=== PATIENT | female | born 1945 | race Caucasian/White ===

== ENCOUNTER 2023-06-14 12:33 | Emergency (ER) | payer MEDICARE, OTHER ==
--- NOTE | 2023-06-14 13:46 | ED ---
GI Bleed HPI - General Chief complaint: GI Bleed Stated complaint: GI bleed Time Seen by Provider: 06/14/23 12:50 Source: patient Mode of arrival: wheelchair Limitations: no limitations - History of Present Illness Initial comments: 77 year old female past history of A. fib on Xarelto, hypertension and presents emergency room with dark tarry stools. States for the past 3 days she has had stools are very dark in color. She states that they are normal consistency for her and she goes once a day. She denies any abdominal pain or rectal pain. No fevers. She spoke with her daughter who is a PA for a GI office. They did order laboratory studies which demonstrated that her hemoglobin was low and instructed that she needed to come into the hospital for transfusion. She has had previous colonoscopy however states this was in the remote past and was was negative for any acute findings. She denies hematemesis. Does admit to some generalized fatigue. No alleviating, precipitating or modifying factors - Related Data Home Medications Medication Instructions Recorded Confirmed Amiodarone [Cordarone] 200 mg PO MOWEFR 06/14/23 06/14/23 Levothyroxine Sodium [Synthroid] 125 mcg PO DAILY 06/14/23 06/14/23 Metoprolol Succinate (ER) [Toprol 25 mg PO DAILY@1400 06/14/23 06/14/23 Xl] Pantoprazole [Protonix] 40 mg PO DAILY 06/14/23 06/14/23 lisinopriL [Zestril] 20 mg PO DAILY 06/14/23 06/14/23 Allergies Allergy/AdvReac Type Severity Reaction Status Date / Time No Known Allergies Allergy Verified 06/14/23 14:02 Review of Systems ROS Statement: Those systems with pertinent positive or pertinent negative responses have been documented in the HPI. ROS Other: All systems not noted in ROS Statement are negative. Past Medical History Past Medical History: Atrial Fibrillation, Hypertension, Thyroid Disorder History of Any Multi-Drug Resistant Organisms: None Reported Additional Past Surgical History / Comment(s): thyroidectomy Past Psychological History: No Psychological Hx Reported Smoking Status: Former smoker Past Alcohol Use History: None Reported Past Drug Use History: None Reported General Exam Limitations: no limitations General appearance: alert, in no apparent distress Head exam: Present: atraumatic, normocephalic, normal inspection Eye exam: Present: normal appearance, PERRL, EOMI. Absent: scleral icterus, conjunctival injection, periorbital swelling ENT exam: Present: normal exam, mucous membranes moist Neck exam: Present: normal inspection. Absent: tenderness, meningismus, lymphadenopathy Respiratory exam: Present: normal lung sounds bilaterally. Absent: respiratory distress, wheezes, rales, rhonchi, stridor Cardiovascular Exam: Present: regular rate, normal rhythm, normal heart sounds. Absent: systolic murmur, diastolic murmur, rubs, gallop, clicks GI/Abdominal exam: Present: soft, normal bowel sounds. Absent: distended, ten derness, guarding, rebound, rigid Rectal exam: Present: heme (+) stool, black stool Extremities exam: Present: normal inspection, full ROM, normal capillary refill. Absent: tenderness, pedal edema, joint swelling, calf tenderness Back exam: Present: normal inspection Neurological exam: Present: alert, oriented X3, CN II-XII intact Psychiatric exam: Present: normal affect, normal mood Skin exam: Present: warm, dry, intact, normal color. Absent: rash Course Vital Signs 06/14/23 06/14/23 06/14/23 12:47 13:30 16:00 Temperature 97.9 F Pulse Rate 79 100 75 Respiratory 18 18 18 Rate Blood Pressure 116/55 132/61 117/73 O2 Sat by Pulse 99 96 Oximetry Medical Decision Making - Medical Decision Making Was pt. sent in by a medical professional or institution (, PA, DOUBLE NEEDLE STITCHER, urgent care, hospital, or half-way...) When possible be specific @ -No Did you speak to anyone other than the patient for history (EMS, parent, family, police, friend...)? What history was obtained from this source @ -I spoke with the patient's daughter, Roman Velasquez who is a PA for Dr. Fish, the GI doctor Did you review nursing and triage notes (agree or disagree)? Why? @ -I reviewed and agree with nursing and triage notes Were old charts reviewed (outside hosp., previous admission, EMS record, old EKG, old radiological studies, urgent care reports/EKG's, half-way records)? Report findings @ -No old charts are available for review Differential Diagnosis (chest pain, altered mental status, abdominal pain women, abdominal pain men, vaginal bleeding, weakness, fever, dyspnea, syncope, headache, dizziness, GI bleed, back pain, seizure, CVA, palpatations, mental health, musculoskeletal)? @ -Differential GI Bleed: Esophageal varices, aortoenteric fistula, Madeline-Treadwell, gastritis, peptic ulcer disease, diverticulosis, inflammatory bowel disease, hemorrhoids, fissure, colitis, malignancy, Meckels diverticulum, this is not meant to be an all- inclusive list. EKG interpreted by me (3pts min.). @ -Not done X-rays interpreted by me (1pt min.). @ -None done CT interpreted by me (1pt min.). @ -None done U/S interpreted by me (1pt. min.). @ -None done What testing was considered but not performed or refused? (CT, X-rays, U/S, labs)? Why? @ -CT was considered however the patient does not have any abdominal pain What meds were considered but not given or refused? Why? @ -None Did you discuss the management of the patient with other professionals (professionals i.e. , PA, DOUBLE NEEDLE STITCHER, lab, RT, psych nurse, school social worker, painter aircraft, teacher, unemployment insurance hearing officer, heel caser)? Give summary @ -I spoke with Dr. Mosley. Not willing to consult on patient unless GI available. Woke with GI who was originally okay to consult on the patient however did retract their statements later on Was smoking cessation discussed for >3mins.? @ -No Was critical care preformed (if so, how long)? @ -yes, 35 minutes for transfusion of blood products Were there social determinants of health that impacted care today? How? (Homelessness, low income, unemployed, alcoholism, drug addiction, transportation, low edu. Level, literacy, decrease access to med. care, [place] [facility], rehab)? @ -No Was there de-escalation of care discussed even if they declined (Discuss DNR or withdrawal of care, Hospice)? DNR status @ -No What co-morbidities impacted this encounter? (DM, HTN, Smoking, COPD, CAD, Cancer, CVA, ARF, Chemo, Hep., AIDS, mental health diagnosis, sleep apnea, morbid obesity)? @ -afib on xarelto Was patient admitted / discharged? Hospital course, mention meds given and route, prescriptions, significant lab abnormalities, going to OR and other pertinent info. @ -Upon arrival patient was placed into room 5. A thorough history and physical exam was performed. She is placed on continuous pulse ox and cardiac monitoring. Patient is hemodynamically stable. Rectal exam is performed and does demonstrate dark stools. Occult is positive. Laboratory studies are conducted and demonstrated hemoglobin of 6.7. Patient's Xarelto is held. I spoke with our surgeon on-call who was agreeable to keep the patient here as long as GI would consult on patient. Originally spoke to GI who states that they would be able to help manage the patient however their statements are r etracted as they are going to be out of town. As GI is not available the patient will require transfer. I did call and speak with Dr. Alcantara from oncology. DIC labs ordered including fibrinogen and coags. I also divya acute hepatitis panel, vitamin B12, folate and iron labs. Patient is then transfused 1 unit of packed red blood cells. I did order a pack of platelets however I receive a call from blood bank stating that the platelets on hand will not be compatible. As the patient is being transferred to an outside facility I will hold off on transfusing platelets and notify receiving facility that she will require platelets. Patient is going to be transferred to [facility] - Spoke with Dr. Dee who agreed to accept the patient. COBRA forms are signed and the patient will be transferred in stable condition Undiagnosed new problem with uncertain prognosis? @ -yes Drug Therapy requiring intensive monitoring for toxicity (Heparin, Nitro, Insulin, Cardizem)? @ -yes- blood Were any procedures done? @ -No Diagnosis/symptom? @ -Acute melanotic, acute lower GI bleed, acute blood loss anemia, acute thrombocytopenia, history of A. fib on xarelto Acute, or Chronic, or Acute on Chronic? @ -acute Uncomplicated (without systemic symptoms) or Complicated (systemic symptoms)? @ -complicated Side effects of treatment? @ -blood incompatibility Exacerbation, Progression, or Severe Exacerbation? @ -No Poses a threat to life or bodily function? How? (Chest pain, USA, NH, pneumonia, PE, COPD, DKA, ARF, appy, cholecystitis, CVA, Diverticulitis, Homicidal, Suicidal, threat to staff... and all critical care pts) @ -yes patient has acute GI bleed with blood loss anemia - Lab Data Result diagrams: 06/14/23 13:40 06/14/23 13:40 Lab Results 06/14/23 06/14/23 06/14/23 Range/Units 13:33 13:38 13:40 WBC 5.6 (3.8-10.6) k/uL RBC 1.96 L (3.80-5.40) m/uL Hgb 6.7 L* (11.4-16.0) gm/dL Hct 19.2 L* (34.0-46.0) % MCV 97.8 (80.0-100.0) fL MCH 33.9 (25.0-35.0) pg MCHC 34.6 (31.0-37.0) g/dL RDW 18.5 H (11.5-15.5) % Plt Count 20 L (150-450) k/uL MPV 9.2 Neutrophils % 72 % Lymphocytes % 20 % Monocytes % 5 % Eosinophils % 1 % Basophils % 0 % Neutrophils # 4.0 (1.3-7.7) k/uL Lymphocytes # 1.1 (1.0-4.8) k/uL Monocytes # 0.3 (0-1.0) k/uL Eosinophils # 0.0 (0-0.7) k/uL Basophils # 0.0 (0-0.2) k/uL Manual Slide Review Performed Hypochromasia Slight Poikilocytosis Slight Anisocytosis Slight Macrocytosis Slight PT (9.0-12.0) sec INR (<1.2) APTT (22.0-30.0) sec Sodium (137-145) mmol/L Potassium (3.5-5.1) mmol/L Chloride (98-107) mmol/L Carbon Dioxide (22-30) mmol/L Anion Gap mmol/L BUN (7-17) mg/dL Creatinine (0.52-1.04) mg/dL Est GFR (CKD-EPI)AfAm (>60 ml/min/1.73 sqM) Est GFR (CKD-EPI)NonAf (>60 ml/min/1.73 sqM) Glucose (74-99) mg/dL Plasma Lactic Acid Karsten (0.7-2.0) mmol/L Calcium (8.4-10.2) mg/dL Magnesium (1.6-2.3) mg/dL Total Bilirubin (0.2-1.3) mg/dL AST (14-36) U/L ALT (4-34) U/L Alkaline Phosphatase (38-126) U/L Troponin I (0.000-0.034) ng/mL Total Protein (6.3-8.2) g/dL Albumin (3.5-5.0) g/dL Stool Occult Blood (Negative) Blood Type O Positive Blood Type Confirm O Positive Blood Type Recheck No Previous Record Bld Type Recheck Status CABO Indicated Antibody Screen NEGATIVE Crossmatch See Detail Spec Expiration Date 06/17/2023 - 233706/14/23 06/14/23 06/14/23 Range/Units 13:40 13:40 13:40 WBC (3.8-10.6) k/uL RBC (3.80-5.40) m/uL Hgb (11.4-16.0) gm/dL Hct (34.0-46.0) % MCV (80.0-100.0) fL MCH (25.0-35.0) pg MCHC (31.0-37.0) g/dL RDW (11.5-15.5) % Plt Count (150-450) k/uL MPV Neutrophils % % Lymphocytes % % Monocytes % % Eosinophils % % Basophils % % Neutrophils # (1.3-7.7) k/uL Lymphocytes # (1.0-4.8) k/uL Monocytes # (0-1.0) k/uL Eosinophils # (0-0.7) k/uL Basophils # (0-0.2) k/uL Manual Slide Review Hypochromasia Poikilocytosis Anisocytosis Macrocytosis PT 12.4 H (9.0-12.0) sec INR 1.2 H (<1.2) APTT 25.4 (22.0-30.0) sec Sodium 140 (137-145) mmol/L Potassium 4.9 (3.5-5.1) mmol/L Chloride 108 H (98-107) mmol/L Carbon Dioxide 23 (22-30) mmol/L Anion Gap 9 mmol/L BUN 54 H (7-17) mg/dL Creatinine 1.33 H (0.52-1.04) mg/dL Est GFR (CKD-EPI)AfAm 44 (>60 ml/min/1.73 sqM) Est GFR (CKD-EPI)NonAf 38 (>60 ml/min/1.73 sqM) Glucose 120 H (74-99) mg/dL Plasma Lactic Acid Karsten (0.7-2.0) mmol/L Calcium 8.6 (8.4-10.2) mg/dL Magnesium 2.1 (1.6-2.3) mg/dL Total Bilirubin 0.5 (0.2-1.3) mg/dL AST 26 (14-36) U/L ALT 26 (4-34) U/L Alkaline Phosphatase 59 (38-126) U/L Troponin I (0.000-0.034) ng/mL Total Protein 6.4 (6.3-8.2) g/dL Albumin 3.9 (3.5-5.0) g/dL Stool Occult Blood Positive H (Negative) Blood Type Blood Type Confirm Blood Type Recheck Bld Type Recheck Status Antibody Screen Crossmatch Spec Expiration Date 06/14/23 06/14/23 Range/Units 13:40 13:40 WBC (3.8-10.6) k/uL RBC (3.80-5.40) m/uL Hgb (11.4-16.0) gm/dL Hct (34.0-46.0) % MCV (80.0-100.0) fL MCH (25.0-35.0) pg MCHC (31.0-37.0) g/dL RDW (11.5-15.5) % Plt Count (150-450) k/uL MPV Neutrophils % % Lymphocytes % % Monocytes % % Eosinophils % % Basophils % % Neutrophils # (1.3-7.7) k/uL Lymphocytes # (1.0-4.8) k/uL Monocytes # (0-1.0) k/uL Eosinophils # (0-0.7) k/uL Basophils # (0-0.2) k/uL Manual Slide Review Hypochromasia Poikilocytosis Anisocytosis Macrocytosis PT (9.0-12.0) sec INR (<1.2) APTT (22.0-30.0) sec Sodium (137-145) mmol/L Potassium (3.5-5.1) mmol/L Chloride (98-107) mmol/L Carbon Dioxide (22-30) mmol/L Anion Gap mmol/L BUN (7-17) mg/dL Creatinine (0.52-1.04) mg/dL Est GFR (CKD-EPI)AfAm (>60 ml/min/1.73 sqM) Est GFR (CKD-EPI)NonAf (>60 ml/min/1.73 sqM) Glucose (74-99) mg/dL Plasma Lactic Acid Karsten 1.1 (0.7-2.0) mmol/L Calcium (8.4-10.2) mg/dL Magnesium (1.6-2.3) mg/dL Total Bilirubin (0.2-1.3) mg/dL AST (14-36) U/L ALT (4-34) U/L Alkaline Phosphatase (38-126) U/L Troponin I <0.012 (0.000-0.034) ng/mL Total Protein (6.3-8.2) g/dL Albumin (3.5-5.0) g/dL Stool Occult Blood (Negative) Blood Type Blood Type Confirm Blood Type Recheck Bld Type Recheck Status Antibody Screen Crossmatch Spec Expiration Date Disposition Clinical Impression: GI bleed, Melena, Thrombocytopenia Disposition: OTHER INSTITUTION NOT DEFINED Condition: Serious Is patient prescribed a controlled substance at d/c from ED?: No Referrals: None,Stated [REFERRING] - 1-2 days Time of Disposition: 16:50 - Out of Hospital Transfer - Req. Specs Out of Hospital Transfer - Requested Specifics: Other Emergency Center ([facility])
[2023-06-14 14:01] LABS: Anisocytosis Slight; Basophils % (A) 0 %; Eosinophils % (A) 1 %; Hypochromasia Slight; Lymphocytes # (A) 1.1 k/uL (1.0-4.8); Lymphocytes % (A) 20 %; MCH 33.9 pg (25.0-35.0); MCHC 34.6 g/dL (31.0-37.0); MCV 97.8 fL (80.0-100.0); Macrocytosis Slight; Mean Platelet Volume 9.2; Monocytes # (A) 0.3 k/uL (0-1.0); Monocytes % (A) 5 %; Neutrophils % (A) 72 %; Poikilocytosis Slight; RBC 1.96 m/uL (3.80-5.40); RDW 18.5 % (11.5-15.5); WBC 5.6 k/uL (3.8-10.6)
[2023-06-14 14:03] LABS: INR 1.2 (<1.2); Partial Thromboplastin Time 25.4 sec (22.0-30.0); Prothrombin Time 12.4 sec (9.0-12.0)
[2023-06-14 14:09] LABS: HCT 19.2 % (34.0-46.0); HGB 6.7 gm/dL (11.4-16.0)
[2023-06-14 14:28] LABS: Platelet Count 20 k/uL (150-450)
[2023-06-14 15:16] LABS: ALT 26 U/L (4-34); AST 26 U/L (14-36); African American GFR (CKD) 44 (>60 ml/min/1.73 sqM); Albumin 3.9 g/dL (3.5-5.0); Alkaline Phosphatase 59 U/L (38-126); Anion Gap 9 mmol/L; Blood Urea Nitrogen 54 mg/dL (7-17); Calcium 8.6 mg/dL (8.4-10.2); Carbon Dioxide 23 mmol/L (22-30); Chloride 108 mmol/L (98-107); Glucose 120 mg/dL (74-99); Magnesium 2.1 mg/dL (1.6-2.3); Non-African American GFR(CKD) 38 (>60 ml/min/1.73 sqM); Potassium 4.9 mmol/L (3.5-5.1); Sodium 140 mmol/L (137-145); Total Bilirubin 0.5 mg/dL (0.2-1.3); Total Protein 6.4 g/dL (6.3-8.2)
[2023-06-14] MEDS ORDERED: PANTOPRAZOLE 40 MG/10 ML VIAL IVP STA (17:20)
[2023-06-14 17:45] VITALS: RESP 16; TEMP 98.6
[2023-06-14 17:55] VITALS: BP 140/65; PULSE 90
[2023-06-15 02:49] LABS: Hepatitis A Antibody IgM Nonreactive; Hepatitis B Core IgM Nonreactive; Hepatitis B Surface Antigen Nonreactive; Hepatitis C IgG Antibody Nonreactive
[2023-06-15 05:11] LABS: % Iron Saturation 41.86 (12.00-45.00)
== END 2023-06-14 18:05 | disposition other institution (70) ==
LOC: EC 12:33
DX: K92.2 Gastrointestinal hemorrhage, unspecified (principal); D69.6 Thrombocytopenia, unspecified; I48.91 Unspecified atrial fibrillation; I10 Essential (primary) hypertension; E07.9 Disorder of thyroid, unspecified; Z87.891 Personal history of nicotine dependence; Z79.890 Hormone replacement therapy; Z79.899 Other long term (current) drug therapy; Z79.01 Long term (current) use of anticoagulants
CPT/HCPCS: 99285 ×2; 96374 ×2; 36415; 86900; 86901; 80053; 80074; 82607; 82728; 82746; 83540; 83550; 83605; 83735; 84484; 85025; 85384; 85610; 85730; 86850; 86920; 82272; 36430; P9016; C9113

== ENCOUNTER 2023-06-28 15:41 | Emergency (ER) | payer MEDICARE, OTHER ==
--- NOTE | 2023-06-28 16:15 | ED ---
General Adult HPI <Carla Fletcher - Last Filed: 06/28/23 16:13> - General Source: patient, RN notes reviewed, old records reviewed <Remberto Rosa - Last Filed: 06/28/23 19:37> - General Stated complaint: platlet transfusion per dr steve Time Seen by Provider: 06/28/23 17:23 - History of Present Illness Initial comments: Patient sent in for platelet transfusion. (Carla Fletcher) This is a 77-year-old female who is brought to the emergency department by family because Dr. Steve wanted her to get a platelet transfusion. Patient has ITP and Dr. Steve also had called ahead and spoke with me and he wanted the patient status of steroids and then she was to get a transfusion of platelets and sent home. Patient has no complaint currently patient states she is not bleeding anywhere currently and patient is okay with that clinical course ( Remberto Rosa) - Related Data Home Medications Medication Instructions Recorded Confirmed Amiodarone [Cordarone] 200 mg PO MOWEFR 06/14/23 06/14/23 Levothyroxine Sodium [Synthroid] 125 mcg PO DAILY 06/14/23 06/14/23 Metoprolol Succinate (ER) [Toprol 25 mg PO DAILY@1400 06/14/23 06/14/23 Xl] Pantoprazole [Protonix] 40 mg PO DAILY 06/14/23 06/14/23 lisinopriL [Zestril] 20 mg PO DAILY 06/14/23 06/14/23 Allergies Allergy/AdvReac Type Severity Reaction Status Date / Time No Known Allergies Allergy Verified 06/28/23 17:01 Review of Systems ROS Other: All systems not noted in ROS Statement are negative. <Carla Fletcher - Last Filed: 06/28/23 16:13> ROS Other: All systems not noted in ROS Statement are negative. <Remberto Rosa - Last Filed: 06/28/23 19:37> ROS Statement: Those systems with pertinent positive or pertinent negative responses have been documented in the HPI. Past Medical History Past Medical History: Atrial Fibrillation, Hypertension, Thyroid Disorder History of Any Multi-Drug Resistant Organisms: None Reported Additional Past Surgical History / Comment(s): thyroidectomy Past Psychological History: No Psychological Hx Reported Smoking Status: Former smoker Past Alcohol Use History: None Reported Past Drug Use History: None Reported <Carla Fletcher - Last Filed: 06/28/23 16:13> General Exam <Carla Fletcher - Last Filed: 06/28/23 16:13> <Remberto Rosa - Last Filed: 06/28/23 19:37> - General Exam Comments Initial Comments: Visual Physical Exam Vital signs reviewed General: Well-appearing, nontoxic, no acute distress. Head: Normocephalic, atraumatic Eyes: PERRLA, EOMI ENT: Airway patent Chest: Nonlabored breathing Skin: No visual rash, normal skin tone Neuro: Alert and oriented 3 Musculoskeletal: No gross abnormalities (Carla Fletcher) GENERAL: Patient is well-developed and well-nourished. Patient is nontoxic and well- hydrated and is in no acute distress. ENT: Neck is soft and supple. No significant lymphadenopathy is noted. Oropharynx is clear. Moist mucous membranes. Neck has full range of motion without eliciting any pain. EYES: The sclera were anicteric and conjunctiva were pink and moist. Extraocular movements were intact and pupils were equal round and reactive to light. Eyelids were unremarkable. PULMONARY: Unlabored respirations. Good breath sounds bilaterally. No audible rales rhonchi or wheezing was noted. CARDIOVASCULAR: There is a regular rate and rhythm without any murmurs gallops or rubs. ABDOMEN: Soft and nontender with normal bowel sounds. SKIN: Skin is clear with no lesions or rashes and otherwise unremarkable. NEUROLOGIC: Patient is alert and oriented x3. Cranial nerves II through XII are grossly intact. Motor and sensory are also intact. Normal speech, volume and content. Symmetrical smile. MUSCULOSKELETAL: Normal extremities with adequate strength and full range of motion. No lower extremity swelling or edema. No calf tenderness. LYMPHATICS: No significant lymphadenopathy is noted PSYCHIATRIC: Normal psychiatric evaluation. (Remberto Rosa) Course Vital Signs 06/28/23 06/28/23 06/28/23 16:56 17:50 18:35 Temperature 98.1 F Pulse Rate 61 68 62 Respiratory 18 18 18 Rate Blood Pressure 124/73 135/58 133/60 O2 Sat by Pulse 98 99 97 Oximetry 06/28/23 19:28 Temperature 98.5 F Pulse Rate 60 Respiratory 18 Rate Blood Pressure 148/61 O2 Sat by Pulse Oximetry Medical Decision Making <Carla Fletcher - Last Filed: 06/28/23 16:13> - Lab Data Result diagrams: 06/28/23 17:12 06/28/23 17:12 <RosaRemberto - Last Filed: 06/28/23 19:37> - Medical Decision Making A quick no portion of this exam was completed by myself, MARVEL Barahona. (Carla Fletcher) EKG was interpreted by myself EKG shows an atrial rhythm at 61 bpm NH interval 166 dresses 84 QT interval 422 QTC is 426 per patient's EKG shows no ST segment elevation or depression. Was pt. sent in by a medical professional or institution (, PA, SENIOR PROJECT MANAGER, urgent care, hospital, or fpc...) When possible be specific @ -Dr. Steve since patient into the emergency department Did you speak to anyone other than the patient for history (EMS, parent, family, police, friend...)? What history was obtained from this source @ -Dr. Steve gave quite a bit of a history prior to the patient's arrival Did you review nursing and triage notes (agree or disagree)? Why? @ -I reviewed and agree with nursing and triage notes Were old charts reviewed (outside hosp., previous admission, EMS record, old EKG, old radiological studies, urgent care reports/EKG's, fpc records)? Report findings @ -I reviewed prior charts prior labwork on this patient Differential Diagnosis (chest pain, altered mental status, abdominal pain women, abdominal pain men, vaginal bleeding, weakness, fever, dyspnea, syncope, headache, dizziness, GI bleed, back pain, seizure, CVA, palpatations, mental health, musculoskeletal)? @ -not applicable EKG interpreted by me (3pts min.). @ -As above X-rays interpreted by me (1pt min.). @ -None done CT interpreted by me (1pt min.). @ -None done U/S interpreted by me (1pt. min.). @ -None done What testing was considered but not performed or refused? (CT, X-rays, U/S, labs)? Why? @ -None What meds were considered but not given or refused? Why? @ -None Did you discuss the management of the patient with other professionals (professionals i.e. DrDougie, PA, SENIOR PROJECT MANAGER, lab, RT, psych nurse, health social work professor, manager wind, teacher, debt recovery officer, mattress spring encaser)? Give summary @ -No Was smoking cessation discussed for >3mins.? @ -No Was critical care preformed (if so, how long)? @ -No Were there social determinants of health that impacted care today? How? (Homelessness, low income, unemployed, alcoholism, drug addiction, perla sportation, low edu. Level, literacy, decrease access to med. care, usp, rehab)? @ -No Was there de-escalation of care discussed even if they declined (Discuss DNR or withdrawal of care, Hospice)? DNR status @ -No What co-morbidities impacted this encounter? (DM, HTN, Smoking, COPD, CAD, Cancer, CVA, ARF, Chemo, Hep., AIDS, mental health diagnosis, sleep apnea, morbid obesity)? @ -None Was patient admitted / discharged? Hospital course, mention meds given and route, prescriptions, significant lab abnormalities, going to OR and other pertinent info. @ -Received steroids per Dr. Steve's instructions. Patient also got 1 unit of platelets. Patient had no adverse reactions patient will be discharged home to follow-up with Dr. Steve Undiagnosed new problem with uncertain prognosis? @ -No Drug Therapy requiring intensive monitoring for toxicity (Heparin, Nitro, Insulin, Cardizem)? @ -No Were any procedures done? @ -No Diagnosis/symptom? @ -Thrombocytopenia Acute, or Chronic, or Acute on Chronic? @ -Acute Uncomplicated (without systemic symptoms) or Complicated (systemic symptoms)? @ -Complicated Side effects of treatment? @ -No Exacerbation, Progression, or Severe Exacerbation? @ -No Poses a threat to life or bodily function? How? (Chest pain, USA, [place], pneumonia, PE, COPD, DKA, ARF, appy, cholecystitis, CVA, Diverticulitis, Homicidal, Suicidal, threat to staff... and all critical care pts) @ -No (Remberto Rosa) - Lab Data Lab Results 06/28/23 06/28/23 06/28/23 Range/Units 17:12 17:12 17:12 WBC 3.4 L (3.8-10.6) k/uL RBC 2.88 L (3.80-5.40) m/uL Hgb 8.9 L D (11.4-16.0) gm/dL Hct 27.4 L (34.0-46.0) % MCV 94.9 (80.0-100.0) fL MCH 31.0 (25.0-35.0) pg MCHC 32.6 (31.0-37.0) g/dL RDW 17.5 H (11.5-15.5) % Plt Count 14 L* (150-450) k/uL MPV 10.4 Neutrophils % 61 % Lymphocytes % 32 % Monocytes % 6 % Eosinophils % 1 % Basophils % 0 % Neutrophils # 2.1 (1.3-7.7) k/uL Lymphocytes # 1.1 (1.0-4.8) k/uL Monocytes # 0.2 (0-1.0) k/uL Eosinophils # 0.0 (0-0.7) k/uL Basophils # 0.0 (0-0.2) k/uL Manual Slide Review Performed Large Platelets Present Polychromasia Present Anisocytosis Slight Macrocytosis Slight Sodium 137 (137-145) mmol/L Potassium 4.5 (3.5-5.1) mmol/L Chloride 104 (98-107) mmol/L Carbon Dioxide 27 (22-30) mmol/L Anion Gap 6 mmol/L BUN 19 H (7-17) mg/dL Creatinine 1.05 H (0.52-1.04) mg/dL Est GFR (CKD-EPI)AfAm 58 (>60 ml/min/1.73 sqM) Est GFR (CKD-EPI)NonAf 51 (>60 ml/min/1.73 sqM) Glucose 91 (74-99) mg/dL Calcium 8.8 (8.4-10.2) mg/dL Total Bilirubin 0.6 (0.2-1.3) mg/dL AST 48 H (14-36) U/L ALT 47 H (4-34) U/L Alkaline Phosphatase 68 (38-126) U/L Troponin I (0.000-0.034) ng/mL Total Protein 7.7 (6.3-8.2) g/dL Albumin 3.7 (3.5-5.0) g/dL Blood Type O Positive Blood Type Recheck O Pos Bld Type Recheck Status No Antibody Screen NEGATIVE 06/28/23 Range/Units 17:12 WBC (3.8-10.6) k/uL RBC (3.80-5.40) m/uL Hgb (11.4-16.0) gm/dL Hct (34.0-46.0) % MCV (80.0-100.0) fL MCH (25.0-35.0) pg MCHC (31.0-37.0) g/dL RDW (11.5-15.5) % Plt Count (150-450) k/uL MPV Neutrophils % % Lymphocytes % % Monocytes % % Eosinophils % % Basophils % % Neutrophils # (1.3-7.7) k/uL Lymphocytes # (1.0-4.8) k/uL Monocytes # (0-1.0) k/uL Eosinophils # (0-0.7) k/uL Basophils # (0-0.2) k/uL Manual Slide Review Large Platelets Polychromasia Anisocytosis Macrocytosis Sodium (137-145) mmol/L Potassium (3.5-5.1) mmol/L Chloride (98-107) mmol/L Carbon Dioxide (22-30) mmol/L Anion Gap mmol/L BUN (7-17) mg/dL Creatinine (0.52-1.04) mg/dL Est GFR (CKD-EPI)AfAm (>60 ml/min/1.73 sqM) Est GFR (CKD-EPI)NonAf (>60 ml/min/1.73 sqM) Glucose (74-99) mg/dL Calcium (8.4-10.2) mg/dL Total Bilirubin (0.2-1.3) mg/dL AST (14-36) U/L ALT (4-34) U/L Alkaline Phosphatase (38-126) U/L Troponin I <0.012 (0.000-0.034) ng/mL Total Protein (6.3-8.2) g/dL Albumin (3.5-5.0) g/dL Blood Type Blood Type Recheck Bld Type Recheck Status Antibody Screen Disposition <Carla Fletcher - Last Filed: 06/28/23 16:13> Is patient prescribed a controlled substance at d/c from ED?: No Time of Disposition: 19:37 <Remberto Rosa - Last Filed: 06/28/23 19:37> Clinical Impression: Acute ITP, Transfusion of platelets during current hospitalization Disposition: HOME SELF-CARE Condition: Good Referrals: Doroteo Steve [Primary Care Provider] - 1-2 days
[2023-06-28 17:28] LABS: Anisocytosis Slight; Basophils % (A) 0 %; Eosinophils % (A) 1 %; HCT 27.4 % (34.0-46.0); Lymphocytes # (A) 1.1 k/uL (1.0-4.8); Lymphocytes % (A) 32 %; MCHC 32.6 g/dL (31.0-37.0); MCV 94.9 fL (80.0-100.0); Macrocytosis Slight; Mean Platelet Volume 10.4; Monocytes # (A) 0.2 k/uL (0-1.0); Monocytes % (A) 6 %; Neutrophils # (A) 2.1 k/uL (1.3-7.7); Neutrophils % (A) 61 %; RBC 2.88 m/uL (3.80-5.40); RDW 17.5 % (11.5-15.5); WBC 3.4 k/uL (3.8-10.6)
[2023-06-28] MEDS ORDERED: methylPREDNISolone SOD SUCCI 125 MG/2 ML VIAL IV STA (17:34)
[2023-06-28 17:43] LABS: ALT 47 U/L (4-34); AST 48 U/L (14-36); African American GFR (CKD) 58 (>60 ml/min/1.73 sqM); Albumin 3.7 g/dL (3.5-5.0); Alkaline Phosphatase 68 U/L (38-126); Anion Gap 6 mmol/L; Blood Urea Nitrogen 19 mg/dL (7-17); Calcium 8.8 mg/dL (8.4-10.2); Carbon Dioxide 27 mmol/L (22-30); Chloride 104 mmol/L (98-107); Glucose 91 mg/dL (74-99); Non-African American GFR(CKD) 51 (>60 ml/min/1.73 sqM); Potassium 4.5 mmol/L (3.5-5.1); Sodium 137 mmol/L (137-145); Total Bilirubin 0.6 mg/dL (0.2-1.3); Total Protein 7.7 g/dL (6.3-8.2)
[2023-06-28 17:44] LABS: HGB 8.9 gm/dL (11.4-16.0)
[2023-06-28 18:14] LABS: Large Platelets Present; Platelet Count 14 k/uL (150-450); Polychromasia Present
[2023-06-28 22:11] VITALS: BP 136/66; PULSE 66; RESP 19; TEMP 98.4
== END 2023-06-28 22:13 | disposition home or self-care (01) ==
LOC: EC 15:41
DX: D69.3 Immune thrombocytopenic purpura (principal); E87.71 Transfusion associated circulatory overload; I48.91 Unspecified atrial fibrillation; I10 Essential (primary) hypertension; E07.9 Disorder of thyroid, unspecified; Z87.891 Personal history of nicotine dependence; Z79.890 Hormone replacement therapy; Z79.899 Other long term (current) drug therapy
CPT/HCPCS: 36415; 93005; 86900; 86901; 80053; 84484; 85025; 86850; 99284; 96374; 36430; P9073; J2930

== ENCOUNTER 2023-08-03 15:00 | Emergency (ER) | payer MEDICARE, OTHER ==
--- NOTE | 2023-08-03 15:30 | ED ---
General Adult HPI - General Source: patient, family, RN notes reviewed Mode of arrival: wheelchair Limitations: no limitations <Soo Snow - Last Filed: 08/03/23 15:31> - General Source: RN notes reviewed, old records reviewed Mode of arrival: wheelchair Limitations: no limitations - History of Present Illness -: hour(s) Radiation: non-radiation Severity scale (1-10): 1 Consistency: constant Improves with: none Worsens with: none Associated Symptoms: denies other symptoms Treatments Prior to Arrival: none <Remberto Ortez - Last Filed: 08/04/23 16:44> - General Stated complaint: low hemaglobin Time Seen by Provider: 08/03/23 15:28 - History of Present Illness Initial comments: Patient is 77-year-old female who presents the emergency department for low platelets. 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 Steve. She did have a platelet infusion 6 days ago. Patient states she has been bruising easy no blood thinner use. No recent falls or head trauma no abnormal bleeding. She offers no other complaints. (Soo Snow) This is a 77-year-old female to the emergency department for evaluation today. Patient Dese for evaluation of low platelet patient has significantly low platelet and sent to the emergency room today for transfusion of platelets. Patient has no symptoms no bleeding (Remberto Ortez) - Related Data Home Medications Medication Instructions Recorded Confirmed Amiodarone [Cordarone] 200 mg PO MOWEFR 06/14/23 06/14/23 Levothyroxine Sodium [Synthroid] 125 mcg PO DAILY 06/14/23 06/14/23 Metoprolol Succinate (ER) [Toprol 25 mg PO DAILY@1400 06/14/23 06/14/23 Xl] Pantoprazole [Protonix] 40 mg PO DAILY 06/14/23 06/14/23 lisinopriL [Zestril] 20 mg PO DAILY 06/14/23 06/14/23 Allergies Allergy/AdvReac Type Severity Reaction Status Date / Time No Known Allergies Allergy Verified 06/28/23 17:01 Review of Systems ROS Other: All systems not noted in ROS Statement are negative. <Soo Snow - Last Filed: 08/03/23 15:31> ROS Other: All systems not noted in ROS Statement are negative. <Hans Ortezophcarley Espinoza - Last Filed: 08/04/23 16:44> ROS Statement: Those systems with pertinent positive or pertinent negative responses have been documented in the HPI. Past Medical History Past Medical History: Atrial Fibrillation, Cancer, Hypertension, Thyroid Disorder Additional Past Medical History / Comment(s): thrombocytopenia History of Any Multi-Drug Resistant Organisms: None Reported Past Surgical History: Tubal Ligation Additional Past Surgical History / Comment(s): thyroidectomy Past Psychological History: No Psychological Hx Reported Smoking Status: Former smoker Past Alcohol Use History: None Reported Past Drug Use History: None Reported <Soo Snow - Last Filed: 08/03/23 15:31> General Exam Limitations: no limitations <Soo Snow - Last Filed: 08/03/23 15:31> General appearance: alert, in no apparent distress Head exam: Present: atraumatic, normocephalic, normal inspection Eye exam: Present: normal appearance, PERRL, EOMI. Absent: scleral icterus, conjunctival injection, periorbital swelling ENT exam: Present: normal exam, mucous membranes moist Neck exam: Present: normal inspection. Absent: tenderness, meningismus, lymphadenopathy Respiratory exam: Present: normal lung sounds bilaterally. Absent: respiratory distress, wheezes, rales, rhonchi, stridor Cardiovascular Exam: Present: regular rate, normal rhythm, normal heart sounds. Absent: systolic murmur, diastolic murmur, rubs, gallop, clicks GI/Abdominal exam: Present: soft, normal bowel sounds. Absent: distended, tenderness, guarding, rebound, rigid Extremities exam: Present: normal inspection, full ROM, normal capillary refill. Absent: tenderness, pedal edema, joint swelling, calf tenderness Back exam: Present: normal inspection Neurological exam: Present: alert, oriented X3, CN II-XII intact Psychiatric exam: Present: normal affect, normal mood Skin exam: Present: warm, dry, intact, normal color. Absent: rash <Remberto Ortez - Last Filed: 08/04/23 16:44> - General Exam Comments Initial Comments: Visual Physical Exam Vital signs reviewed General: Well-appearing, nontoxic, no acute distress. Head: Normocephalic, atraumatic Eyes: PERRLA, EOMI ENT: Airway patent Chest: Nonlabored breathing Skin: No visual rash, normal skin tone Neuro: Alert and oriented 3 Musculoskeletal: No gross abnormalities (Soo Snow) Course <Remberto Ortez - Last Filed: 08/04/23 16:44> Vital Signs 08/03/23 08/03/23 08/03/23 15:26 19:35 20:02 Temperature 97.8 F 98.3 F Pulse Rate 73 71 66 Respiratory 16 18 18 Rate Blood Pressure 161/74 130/61 132/59 O2 Sat by Pulse 97 97 97 Oximetry 08/03/23 08/03/23 08/03/23 20:12 20:32 21:02 Temperature 98.3 F 98.3 F Pulse Rate 64 66 66 Respiratory 18 18 18 Rate Blood Pressure 128/55 146/57 142/68 O2 Sat by Pulse 97 97 98 Oximetry 08/03/23 21:23 Temperature 98.3 F Pulse Rate 65 Respiratory 18 Rate Blood Pressure 143/70 O2 Sat by Pulse 97 Oximetry - Reevaluation(s) Reevaluation #1: 08/03/23 19:06 Medical records reviewed (Remberto Ortez) Reevaluation #2: 08/03/23 19:06 Patient is transfuse without significant complication (Remberto Ortez) Reevaluation #3: 08/03/23 19:06 Patient informed results questions answered (Remberto Ortez) Reevaluation #4: 08/03/23 19:06 Was pt. sent in by a medical professional or institution (, PA, GROUP FITNESS MANAGER, urgent care, hospital, or long-term...) When possible be specific @ -no Did you speak to anyone other than the patient for history (EMS, parent, family, police, friend...)? What history was obtained from this source @ -no Did you review nursing and triage notes (agree or disagree)? Why? @ -agree Are old charts reviewed (outside hosp., previous admission, EMS record, old EKG, old radiological studies, urgent care reports/EKG's, long-term records)? Report findings @ -yes Differential Diagnosis (chest pain, altered mental status, abdominal pain women, abdominal pain men, vaginal bleeding, weakness, fever, dyspnea, syncope, head ache, dizziness, GI bleed, back pain, seizure, CVA, palpatations, mental health, musculoskeletal)? @ -prior EKG interpreted by me (3pts min.). @ -no X-rays interpreted by me (1pt min.). @ -no CT interpreted by me (1pt min.). @ -no U/S interpreted by me (1pt. min.). @ -no What testing was considered but not performed or refused? (CT, X-rays, U/S, labs)? Why? @ -none What meds were considered but not given or refused? Why? @ -none Did you discuss the management of the patient with other professionals (professionals i.e. Dr., PA, GROUP FITNESS MANAGER, lab, RT, psych nurse, social problems specialist, layout artist, teacher, correction officer reformatory, case technician)? Give summary @ -no Was smoking cessation discussed for >3mins.? @ -no Was critical care preformed (if so, how long)? @ -no Were there social determinants of health that impacted care today? How? (Homelessness, low income, unemployed, alcoholism, drug addiction, trans portation, low edu. Level, literacy, decrease access to med. care, retirement, rehab)? @ -none Was there de-escalation of care discussed even if they declined (Discuss DNR or withdrawal of care, Hospice)? DNR status @ -no What co-morbidities impacted this encounter? (DM, HTN, Smoking, COPD, CAD, Cancer, CVA, ARF, Chemo, Hep., AIDS, mental health diagnosis, sleep apnea, morbid obesity)? @ -none Was patient admitted / discharged? Hospital course, mention meds given and route, prescriptions, significant lab abnormalities, going to OR and other pertinent info. @ - 77 female for platelet transfusion. Patient given presents here in the ER can be discharged home Discharge Undiagnosed new problem with uncertain prognosis? @ -no Drug Therapy requiring intensive monitoring for toxicity (Heparin, Nitro, Insulin, Cardizem)? @ -no Were any procedures done? @ -no Diagnosis/symptom? @ -Pancytopenia, thrombocytopenia Acute, or Chronic, or Acute on Chronic? @ -Acute Uncomplicated (without systemic symptoms) or Complicated (systemic symptoms)? @ -Complicated Side effects of treatment? @ -no Exacerbation, Progression, or Severe Exacerbation? @ -exacerbation Poses a threat to life or bodily function? How? (Chest pain, USA, [place], pneumonia, PE, COPD, DKA, ARF, appy, cholecystitis, CVA, Diverticulitis, Homicidal, Suicidal, threat to staff... and all critical care pts) @ -yes with significant pancytopenia (Remberto Ortez) Medical Decision Making <Soo Snow - Last Filed: 08/03/23 15:31> - Lab Data Result diagrams: 08/03/23 16:06 08/03/23 16:06 <Remberto Ortez - Last Filed: 08/04/23 16:44> - Medical Decision Making I performed the QuickNote portion of this chart - Soo Snow PA-C (Soo Snow) 77 female for platelet transfusion. Patient given presents here in the ER can b e discharged home (Remberto Ortez) - Lab Data Lab Results 08/03/23 08/03/23 08/03/23 Range/Units 14:40 16:06 16:06 WBC 3.5 L (3.8-10.6) k/uL RBC 2.54 L (3.80-5.40) m/uL Hgb 8.4 L (11.4-16.0) gm/dL Hct 23.7 L (34.0-46.0) % MCV 93.2 (80.0-100.0) fL MCH 33.0 (25.0-35.0) pg MCHC 35.4 (31.0-37.0) g/dL RDW 18.8 H (11.5-15.5) % Plt Count 10 L* (150-450) k/uL MPV 7.2 Neutrophils % 73 % Lymphocytes % 19 % Monocytes % 5 % Eosinophils % 0 % Basophils % 0 % Neutrophils # 2.5 (1.3-7.7) k/uL Lymphocytes # 0.7 L (1.0-4.8) k/uL Monocytes # 0.2 (0-1.0) k/uL Eosinophils # 0.0 (0-0.7) k/uL Basophils # 0.0 (0-0.2) k/uL Manual Slide Review Performed Poikilocytosis Slight Anisocytosis Slight Macrocytosis Slight PT 11.6 (10.0-12.5) sec INR 1.1 (<1.2) APTT 20.1 L (22.0-30.0) sec Sodium (137-145) mmol/L Potassium (3.5-5.1) mmol/L Chloride (98-107) mmol/L Carbon Dioxide (22-30) mmol/L Anion Gap mmol/L BUN (7-17) mg/dL Creatinine (0.52-1.04) mg/dL Est GFR (CKD-EPI)AfAm (>60 ml/min/1.73 sqM) Est GFR (CKD-EPI)NonAf (>60 ml/min/1.73 sqM) Glucose (74-99) mg/dL Calcium (8.4-10.2) mg/dL Magnesium (1.6-2.3) mg/dL Total Bilirubin (0.2-1.3) mg/dL AST (14-36) U/L ALT (4-34) U/L Alkaline Phosphatase (38-126) U/L Total Protein (6.3-8.2) g/dL Albumin (3.5-5.0) g/dL Blood Type O Positive Blood Type Recheck O Pos Bld Type Recheck Status No Antibody Screen NEGATIVE Transfuse Platelets Spec Expiration Date 08/06/2023 - 233908/03/23 08/03/23 Range/Units 16:06 19:40 WBC (3.8-10.6) k/uL RBC (3.80-5.40) m/uL Hgb (11.4-16.0) gm/dL Hct (34.0-46.0) % MCV (80.0-100.0) fL MCH (25.0-35.0) pg MCHC (31.0-37.0) g/dL RDW (11.5-15.5) % Plt Count (150-450) k/uL MPV Neutrophils % % Lymphocytes % % Monocytes % % Eosinophils % % Basophils % % Neutrophils # (1.3-7.7) k/uL Lymphocytes # (1.0-4.8) k/uL Monocytes # (0-1.0) k/uL Eosinophils # (0-0.7) k/uL Basophils # (0-0.2) k/uL Manual Slide Review Poikilocytosis Anisocytosis Macrocytosis PT (10.0-12.5) sec INR (<1.2) APTT (22.0-30.0) sec Sodium 139 (137-145) mmol/L Potassium 4.0 (3.5-5.1) mmol/L Chloride 106 (98-107) mmol/L Carbon Dioxide 26 (22-30) mmol/L Anion Gap 7 mmol/L BUN 28 H (7-17) mg/dL Creatinine 1.15 H (0.52-1.04) mg/dL Est GFR (CKD-EPI)AfAm 52 (>60 ml/min/1.73 sqM) Est GFR (CKD-EPI)NonAf 45 (>60 ml/min/1.73 sqM) Glucose 146 H (74-99) mg/dL Calcium 8.6 (8.4-10.2) mg/dL Magnesium 1.7 (1.6-2.3) mg/dL Total Bilirubin 0.6 (0.2-1.3) mg/dL AST 25 (14-36) U/L ALT 38 H (4-34) U/L Alkaline Phosphatase 64 (38-126) U/L Total Protein 6.1 L (6.3-8.2) g/dL Albumin 3.5 (3.5-5.0) g/dL Blood Type Blood Type Recheck Bld Type Recheck Status Antibody Screen Transfuse Platelets 08/03/23 Spec Expiration Date Disposition <Soo Snow - Last Filed: 08/03/23 15:31> Is patient prescribed a controlled substance at d/c from ED?: No Time of Disposition: 19:00 <Remberto Ortez - Last Filed: 08/04/23 16:44> Clinical Impression: Thrombocytopenia Disposition: HOME SELF-CARE Condition: Fair Instructions (If sedation given, give patient instructions): Thrombocytopenia (ED), Pancytopenia (DC) Referrals: Isaura Varela MD [Primary Care Provider] - 1-2 days
[2023-08-03 17:05] LABS: ALT 38 U/L (4-34); AST 25 U/L (14-36); African American GFR (CKD) 52 (>60 ml/min/1.73 sqM); Albumin 3.5 g/dL (3.5-5.0); Alkaline Phosphatase 64 U/L (38-126); Anion Gap 7 mmol/L; Blood Urea Nitrogen 28 mg/dL (7-17); Calcium 8.6 mg/dL (8.4-10.2); Carbon Dioxide 26 mmol/L (22-30); Chloride 106 mmol/L (98-107); Glucose 146 mg/dL (74-99); Magnesium 1.7 mg/dL (1.6-2.3); Non-African American GFR(CKD) 45 (>60 ml/min/1.73 sqM); Sodium 139 mmol/L (137-145); Total Bilirubin 0.6 mg/dL (0.2-1.3); Total Protein 6.1 g/dL (6.3-8.2)
[2023-08-03 17:09] LABS: Anisocytosis Slight; Basophils % (A) 0 %; Eosinophils % (A) 0 %; HCT 23.7 % (34.0-46.0); HGB 8.4 gm/dL (11.4-16.0); INR 1.1 (<1.2); Lymphocytes # (A) 0.7 k/uL (1.0-4.8); Lymphocytes % (A) 19 %; MCHC 35.4 g/dL (31.0-37.0); MCV 93.2 fL (80.0-100.0); Macrocytosis Slight; Mean Platelet Volume 7.2; Monocytes # (A) 0.2 k/uL (0-1.0); Monocytes % (A) 5 %; Neutrophils # (A) 2.5 k/uL (1.3-7.7); Neutrophils % (A) 73 %; Poikilocytosis Slight; Prothrombin Time 11.6 sec (10.0-12.5); RBC 2.54 m/uL (3.80-5.40); RDW 18.8 % (11.5-15.5); WBC 3.5 k/uL (3.8-10.6)
[2023-08-03 17:21] LABS: Partial Thromboplastin Time 20.1 sec (22.0-30.0)
[2023-08-03 17:39] LABS: Platelet Count 10 k/uL (150-450)
[2023-08-03 19:48] VITALS: RESP 18
[2023-08-03 20:04] VITALS: TEMP 98.3
[2023-08-03 21:44] VITALS: BP 143/70; PULSE 65
== END 2023-08-03 21:34 | disposition home or self-care (01) ==
LOC: EC 15:00
DX: D69.6 Thrombocytopenia, unspecified (principal); I48.91 Unspecified atrial fibrillation; I10 Essential (primary) hypertension; E07.9 Disorder of thyroid, unspecified; Z87.891 Personal history of nicotine dependence; Z79.890 Hormone replacement therapy; Z79.899 Other long term (current) drug therapy
CPT/HCPCS: 36415; 93005; 86900; 86901; 80053; 83735; 85025; 85610; 85730; 86850; 99284; 36430; P9073

== ENCOUNTER 2023-08-22 15:57 | Inpatient (IN) | payer MEDICARE, OTHER ==
--- NOTE | 2023-08-22 18:27 | ED ---
General Adult HPI - General Chief complaint: Recheck/Abnormal Lab/Rx Stated complaint: low hemaglobin Time Seen by Provider: 08/22/23 18:08 Source: patient, RN/MD, RN notes reviewed Mode of arrival: wheelchair Limitations: no limitations - History of Present Illness Initial comments: Patient is a pleasant 77-year-old female presenting to the emergency department with concerns for anemia. Patient does have history of myelodysplasia. Patient has chronic anemia and platelet abnormality. Labs done yesterday for Dr. Steve was hemoglobin 5.4 and platelet count of 14. I did speak with him. He does request patient admission with 2 units of PRBCs and reevaluate in the morning. Patient states she has been having some mild fatigue. Patient may have some mild dyspnea with severe exertion. - Related Data Home Medications Medication Instructions Recorded Confirmed Amiodarone [Cordarone] 200 mg PO DAILY 06/14/23 08/22/23 Levothyroxine Sodium [Synthroid] 125 mcg PO DAILY 06/14/23 08/22/23 Metoprolol Succinate (ER) [Toprol 25 mg PO DAILY 06/14/23 08/22/23 Xl] Pantoprazole [Protonix] 40 mg PO DAILY 06/14/23 08/22/23 lisinopriL [Zestril] 20 mg PO DAILY 06/14/23 08/22/23 Ascorbic Acid [Vitamin C] 2,000 mg PO DAILY 08/22/23 08/22/23 Biotin 10 mg PO DAILY 08/22/23 08/22/23 Calcium Carb/Mag Ox/Zinc Sulf 1 tab PO DAILY 08/22/23 08/22/23 [Cmr-Nox-Paeo 334-134-5 mg Tab] Cholecalciferol [Vitamin D3 (25 50 mcg PO DAILY 08/22/23 08/22/23 Mcg = 1000 Iu)] Multivitamins, Thera [Multivitamin 1 tab PO DAILY 08/22/23 08/22/23 (formulary)] Omeprazole 20 mg PO DAILY 08/22/23 08/22/23 busPIRone HCL 15 mg PO DIRECTED 08/22/23 08/22/23 lisinopriL [Zestril] 20 mg PO HS PRN 08/22/23 08/22/23 Allergies Allergy/AdvReac Type Severity Reaction Status Date / Time No Known Allergies Allergy Verified 08/22/23 20:50 Review of Systems ROS Statement: Those systems with pertinent positive or pertinent negative responses have been documented in the HPI. ROS Other: All systems not noted in ROS Statement are negative. Constitutional: Denies: fever Eyes: Denies: eye pain ENT: Denies: ear pain Respiratory: Reports: as per HPI. Denies: cough Endocrine: Reports: fatigue Gastrointestinal: Denies: abdominal pain, hematemesis, melena, hematochezia Genitourinary: Denies: dysuria Past Medical History Past Medical History: Atrial Fibrillation, Cancer, Hypertension, Thyroid Disorder Additional Past Medical History / Comment(s): thrombocytopenia History of Any Multi-Drug Resistant Organisms: None Reported Past Surgical History: Tubal Ligation Additional Past Surgical History / Comment(s): thyroidectomy Past Psychological History: No Psychological Hx Reported Smoking Status: Former smoker Past Alcohol Use History: None Reported Past Drug Use History: None Reported General Exam Limitations: no limitations General appearance: alert, in no apparent distress Head exam: Present: normocephalic Eye exam: Present: normal appearance Neck exam: Present: normal inspection Respiratory exam: Present: normal lung sounds bilaterally Cardiovascular Exam: Present: regular rate, normal rhythm GI/Abdominal exam: Present: soft. Absent: tenderness Extremities exam: Present: normal inspection Neurological exam: Present: alert Psychiatric exam: Present: normal affect, normal mood Skin exam: Present: normal color Course Vital Signs 08/22/23 08/22/23 16:07 19:44 Temperature 98.6 F Pulse Rate 72 68 Respiratory 18 18 Rate Blood Pressure 129/73 122/52 O2 Sat by Pulse 99 97 Oximetry EKG Findings - EKG Results: EKG: interpreted by ERMD, sinus rhythm, normal axis, normal QRS, normal ST/T Medical Decision Making - Medical Decision Making Was pt. sent in by a medical professional or institution (, PA, [employer], urgent care, hospital, or correction...) When possible be specific @ -Patient was sent in by Dr. Ratliff Did you speak to anyone other than the patient for history (EMS, parent, family, police, friend...)? What history was obtained from this source @ -Case was discussed with Dr. Steve including patient's blood work and history Did you review nursing and triage notes (agree or disagree)? Why? @ -I reviewed and agree with nursing and triage notes Were old charts reviewed (outside hosp., previous admission, EMS record, old EKG, old radiological studies, urgent care reports/EKG's, correction records)? Report findings @ -Of his lab work reviewed Differential Diagnosis (chest pain, altered mental status, abdominal pain women, abdominal pain men, vaginal bleeding, weakness, fever, dyspnea, syncope, headache, dizziness, GI bleed, back pain, seizure, CVA, palpatations, mental health, musculoskeletal)? @ -Differential Weakness: Hypoglycemia, shock, sepsis, hyponatremia, anemia, infection, [place], ETOH, adverse medicine reaction, overdose, stroke, this is not meant to be an all-inclusive list. EKG interpreted by me (3pts min.). @ -As above X-rays interpreted by me (1pt min.). @ -None done CT interpreted by me (1pt min.). @ -None done U/S interpreted by me (1pt. min.). @ -None done What testing was considered but not performed or refused? (CT, X-rays, U/S, labs)? Why? @ -None What meds were considered but not given or refused? Why? @ -None Did you discuss the management of the patient with other professionals (professionals i.e. , PA, [employer], lab, RT, psych nurse, social services specialist, financial officer, teacher, mounted police officer, correctional counselor/case manager)? Give summary @ -Case was discussed with Dr. Steve who would like patient to be admitted and received 2 units of packed red cells. No need for other transfusions. No need for radiation. [facility] has been paged for hospital call. Was smoking cessation discussed for >3mins.? @ -No Was critical care preformed (if so, how long)? @ -31 minutes critical care time Were there social determinants of health that impacted care today? How? (Homelessness, low income, unemployed, alcoholism, drug addiction, transportation, low edu. Level, literacy, decrease access to med. care, mcc, rehab)? @ -No Was there de-escalation of care discussed even if they declined (Discuss DNR or withdrawal of care, Hospice)? DNR status @ -No What co-morbidities impacted this encounter? (DM, HTN, Smoking, COPD, CAD, Cancer, CVA, ARF, Chemo, Hep., AIDS, mental health diagnosis, sleep apnea, morbid obesity)? @ -None Was patient admitted / discharged? Hospital course, mention meds given and route, prescriptions, significant lab abnormalities, going to OR and other pertinent info. @ -Patient is aware of labs and plan. Patient will be admitted with blood transfusion. Admission orders written. Transfusion ordered. Undiagnosed new problem with uncertain prognosis? @ -No Drug Therapy requiring intensive monitoring for toxicity (Heparin, Nitro, Insulin, Cardizem)? @ -Patient will need monitoring for blood transfusion. Were any procedures done? @ -No Diagnosis/symptom? @ -Anemia, myelodysplasia Acute, or Chronic, or Acute on Chronic? @ -Acute on chronic, chronic Uncomplicated (without systemic symptoms) or Complicated (systemic symptoms)? @ -default Side effects of treatment? @ -No Exacerbation, Progression, or Severe Exacerbation? @ -No Poses a threat to life or bodily function? How? (Chest pain, [place], [place], pneumonia, PE, COPD, DKA, ARF, appy, cholecystitis, CVA, Diverticulitis, Homicidal, Suicidal, threat to staff... and all critical care pts) @ -No - Lab Data Result diagrams: 08/22/23 19:17 08/22/23 19:17 Lab Results 08/22/23 08/22/23 Range/Units 19:17 19:17 WBC 3.7 L (3.8-10.6) k/uL RBC 1.79 L (3.80-5.40) m/uL Hgb 6.0 L* D (11.4-16.0) gm/dL Hct 16.8 L* (34.0-46.0) % MCV 93.6 (80.0-100.0) fL MCH 33.7 (25.0-35.0) pg MCHC 36.0 (31.0-37.0) g/dL RDW 20.3 H (11.5-15.5) % MPV 8.4 Poikilocytosis Moderate Anisocytosis Moderate Macrocytosis Slight Sodium 137 (137-145) mmol/L Potassium 3.9 (3.5-5.1) mmol/L Chloride 104 (98-107) mmol/L Carbon Dioxide 23 (22-30) mmol/L Anion Gap 10 mmol/L BUN 25 H (7-17) mg/dL Creatinine 1.41 H (0.52-1.04) mg/dL Est GFR (CKD-EPI)AfAm 41 (>60 ml/min/1.73 sqM) Est GFR (CKD-EPI)NonAf 36 (>60 ml/min/1.73 sqM) Glucose 131 H (74-99) mg/dL Calcium 8.6 (8.4-10.2) mg/dL Total Bilirubin 1.1 (0.2-1.3) mg/dL AST 27 (14-36) U/L ALT 22 (4-34) U/L Alkaline Phosphatase 67 (38-126) U/L Total Protein 6.7 (6.3-8.2) g/dL Albumin 3.7 (3.5-5.0) g/dL Critical Care Time Critical Care Time: Yes Total Critical Care Time: 31 Disposition Clinical Impression: Anemia, Myelodysplasia (myelodysplastic syndrome) Disposition: ADMITTED IP TO THIS [facility] Is patient prescribed a controlled substance at d/c from ED?: No Referrals: Doroteo Steve [Family Provider] - 1-2 days Time of Disposition: 21:04
[2023-08-22 20:05] LABS: Anisocytosis Moderate; Basophils % (A) 0 %; Eosinophils % (A) 1 %; Lymphocytes # (A) 1.5 k/uL (1.0-4.8); Lymphocytes % (A) 40 %; MCH 33.7 pg (25.0-35.0); MCV 93.6 fL (80.0-100.0); Macrocytosis Slight; Mean Platelet Volume 8.4; Monocytes # (A) 0.2 k/uL (0-1.0); Monocytes % (A) 7 %; Neutrophils # (A) 1.8 k/uL (1.3-7.7); Neutrophils % (A) 49 %; Poikilocytosis Moderate; RBC 1.79 m/uL (3.80-5.40); RDW 20.3 % (11.5-15.5); WBC 3.7 k/uL (3.8-10.6)
[2023-08-22 20:16] LABS: ALT 22 U/L (4-34); AST 27 U/L (14-36); African American GFR (CKD) 41 (>60 ml/min/1.73 sqM); Albumin 3.7 g/dL (3.5-5.0); Alkaline Phosphatase 67 U/L (38-126); Anion Gap 10 mmol/L; Blood Urea Nitrogen 25 mg/dL (7-17); Calcium 8.6 mg/dL (8.4-10.2); Carbon Dioxide 23 mmol/L (22-30); Chloride 104 mmol/L (98-107); Glucose 131 mg/dL (74-99); Non-African American GFR(CKD) 36 (>60 ml/min/1.73 sqM); Potassium 3.9 mmol/L (3.5-5.1); Sodium 137 mmol/L (137-145); Total Bilirubin 1.1 mg/dL (0.2-1.3); Total Protein 6.7 g/dL (6.3-8.2)
[2023-08-22 20:44] LABS: HCT 16.8 % (34.0-46.0)
[2023-08-22] MEDS ORDERED: NALOXONE 0.4 MG/ML 1 ML VIAL IV PRN (21:07)
[2023-08-22 21:10] LABS: Platelet Count 18 k/uL (150-450)
--- NOTE | 2023-08-23 00:57 | P.HPIM ---
History of Present Illness H&P Date: 08/22/23 Patient is a 77-year-old female with a PMH of myelodysplastic syndrome (diagnosed 2-3 months ago, following at [facility] with Dr. Steve, reports there are plans of starting chemotherapy), hypertension, hypothyroidism, A. fib (not on anticoagulation due to severe anemia), chronic kidney disease, essential tremor involving face, who was sent to the emergency room from Dr. Steve's office for severe anemia with hemoglobin 5.6. Patient notes that she has also been feeling increasingly fatigued over the past several days. Notes her hemoglobin was previously around 9. Denies noticing blood in stools or black tarry stools. Denied noticing blood loss elsewhere. At time of interview, reported feeling somewhat better after arrival at the emergency room. Denied experiencing chest discomfort, shortness of breath, fever, chills, cough, nausea, vomiting, abdominal pain, diarrhea. EKG in the emergency room revealed sinus rhythm at [address]/T-wave changes are as reviewed by me. Laboratory evaluation revealed a hemoglobin of 6.0, WBC count 7.3, and platelet count 18, BUN 25, creatinine 1.4 (baseline 1.1), and glucose 131. ED documentation reviewed and case discussed with ED provider. Review of systems: Pertinent positives and negatives as discussed in HPI, a complete review of systems was performed and all other systems are negative. Physical examination: Vital signs reviewed General: non toxic, no distress, appears at stated age, morbidly obese Derm: no unusual rashes/lesions, warm Head: atraumatic, normocephalic, symmetric Eyes: EOMI, no lid lag, anicteric sclera, pupils equal round reactive to light ENT: Nose and ears atraumatic Neck: No cervical lymphadenopathy, trachea midline, supple Mouth: no lip lesion, mucus membranes moist, tremor of lower lip and mouth noted both at rest and with attempting to speak Cardiovascular: S1S2 reg, no murmur, positive dorsalis pedis pulse bilateral, no edema Lungs: CTA bilateral, no rhonchi, no rales, no accessory muscle use Abdominal: soft, nontender to palpation, no guarding Ext: muscle strength 5 out of 5 in all 4 extremities grossly, no gross muscle atrophy, no contractures, Neuro: CN II-XI grossly intact, no gross focal neuro deficits Psych: Alert, oriented, appropriate affect Assessment: Pancytopenia with severe anemia in setting of MDS MICHELLE on chronic kidney disease Chronic conditions: A. fib, hypertension, hypothyroidism, essential tremor, chronic kidney disease Imaging: EKG in the emergency room revealed sinus rhythm at [address]/T-wave changes are as reviewed by me Data Review: Laboratory evaluation revealed a hemoglobin of 6.0, WBC count 7.3, and platelet count 18, BUN 25, creatinine 1.4 (baseline 1.1), and glucose 131. Plan: Status post 2 unit PRBCs and 1 unit platelets Monitor CBC Hematology consulted Gentle IV hydration and monitor BMP. Hold ACEIs Continue with home medications DVT prophylaxis: AICD The patient is admitted with an anticipated less than 2 midnight stay for evaluation of pancytopenia CODE STATUS: Full Code Discussed with: Patient Anticipated discharge place: Home Past Medical History Past Medical History: Atrial Fibrillation, Cancer, Hypertension, Thyroid Disorder Additional Past Medical History / Comment(s): thrombocytopenia History of Any Multi-Drug Resistant Organisms: None Reported Past Surgical History: Tubal Ligation Additional Past Surgical History / Comment(s): thyroidectomy Past Psychological History: No Psychological Hx Reported Smoking Status: Former smoker Past Alcohol Use History: None Reported Past Drug Use History: None Reported Medications and Allergies Home Medications Medication Instructions Recorded Confirmed Type Amiodarone [Cordarone] 200 mg PO DAILY 06/14/23 08/22/23 History Levothyroxine Sodium [Synthroid] 125 mcg PO DAILY 06/14/23 08/22/23 History Metoprolol Succinate (ER) [Toprol 25 mg PO DAILY 06/14/23 08/22/23 History Xl] Pantoprazole [Protonix] 40 mg PO DAILY 06/14/23 08/22/23 History lisinopriL [Zestril] 20 mg PO DAILY 06/14/23 08/22/23 History Ascorbic Acid [Vitamin C] 2,000 mg PO DAILY 08/22/23 08/22/23 History Biotin 10 mg PO DAILY 08/22/23 08/22/23 History Calcium Carb/Mag Ox/Zinc Sulf 1 tab PO DAILY 08/22/23 08/22/23 History [Qdh-Xdn-Esmm 334-134-5 mg Tab] Cholecalciferol [Vitamin D3 (25 50 mcg PO DAILY 08/22/23 08/22/23 History Mcg = 1000 Iu)] Multivitamins, Thera [Multivitamin 1 tab PO DAILY 08/22/23 08/22/23 History (formulary)] Omeprazole 20 mg PO DAILY 08/22/23 08/22/23 History busPIRone HCL 15 mg PO DIRECTED 08/22/23 08/22/23 History lisinopriL [Zestril] 20 mg PO HS PRN 08/22/23 08/22/23 History Allergies Allergy/AdvReac Type Severity Reaction Status Date / Time No Known Allergies Allergy Verified 08/22/23 20:50 Physical Exam Vitals: Vital Signs Temp Pulse Resp BP Pulse Ox 08/23/23 00:51 98.3 F 72 18 132/62 97 08/22/23 22:53 98.2 F 70 18 134/65 96 08/22/23 22:33 98.2 F 70 18 134/62 96 08/22/23 21:00 66 18 130/56 95 08/22/23 19:44 68 18 122/52 97 08/22/23 16:07 98.6 F 72 18 129/73 99 Intake and Output 08/22/23 08/22/23 08/23/23 14:59 22:59 06:59 Intake Total 0 367 Balance 0 367 Intake: Blood Product 0 367 Unit 0 367 Other: Weight 98.883 kg Results CBC & Chem 7: 08/22/23 19:17 08/22/23 19:17 Labs: Abnormal Lab Results - Last 24 Hours (Table) 08/22/23 08/22/23 08/22/23 Range/Units 19:17 19:17 19:25 WBC 3.7 L (3.8-10.6) k/uL RBC 1.79 L (3.80-5.40) m/uL Hgb 6.0 L* D (11.4-16.0) gm/dL Hct 16.8 L* (34.0-46.0) % RDW 20.3 H (11.5-15.5) % Plt Count 18 L* D (150-450) k/uL BUN 25 H (7-17) mg/dL Creatinine 1.41 H (0.52-1.04) mg/dL Glucose 131 H (74-99) mg/dL Crossmatch See Detail
[2023-08-23] MEDS ORDERED: ACETAMINOPHEN TAB 500 MG TAB PO PRN (01:38)
[2023-08-23] MEDS: LEVOTHYROXINE 125 MCG TAB PO SCH (06:28)
[2023-08-23 06:44] LABS: Anisocytosis Slight; Basophils % (A) 0 %; Eosinophils % (A) 1 %; HCT 21.4 % (34.0-46.0); Lymphocytes % (A) 31 %; MCH 32.7 pg (25.0-35.0); MCHC 34.8 g/dL (31.0-37.0); MCV 93.9 fL (80.0-100.0); Macrocytosis Slight; Mean Platelet Volume 11.4; Monocytes # (A) 0.3 k/uL (0-1.0); Monocytes % (A) 8 %; Neutrophils # (A) 1.8 k/uL (1.3-7.7); Neutrophils % (A) 56 %; Poikilocytosis Slight; RBC 2.28 m/uL (3.80-5.40); RDW 18.6 % (11.5-15.5); WBC 3.3 k/uL (3.8-10.6)
[2023-08-23 06:53] LABS: HGB 7.5 gm/dL (11.4-16.0); Platelet Count 29 k/uL (150-450)
[2023-08-23] MEDS: AMIODARONE 200 MG TAB PO SCH (08:26)
[2023-08-23] MEDS: METOPROLOL SUCCINATE (ER) 25 MG TAB.ER.24H PO SCH (08:26)
[2023-08-23] MEDS: MULTIVITAMINS, THERA 1 EACH TAB PO SCH (08:26)
[2023-08-23] MEDS: PANTOPRAZOLE 40 MG TABLET PO SCH (08:26)
[2023-08-23] MEDS ORDERED: NON FORMULARY DRUG (Omeprazole [Omeprazole] 20 MG Capsule.Dr) PO SCH (13:15)
[2023-08-23 14:46] LABS: Reticulocyte % 2.5 % (0.5-2.0)
--- NOTE | 2023-08-23 16:08 | P.PN ---
Progress Note - Text Progress Note Date: 08/23/23 Patient is a 77-year-old female with a PMH of myelodysplastic syndrome (diagnosed 2-3 months ago, following at [facility] with Dr. Steve, reports there are plans of starting chemotherapy), hypertension, hypothyroidism, A. fib (not on anticoagulation due to severe anemia), chronic kidney disease, essential tremor involving face, who was sent to the emergency room from Dr. Steve's office for severe anemia with hemoglobin 5.6. Patient notes that she has also been feeling increasingly fatigued over the past several days. Notes her hemoglobin was previously around 9. Denies noticing blood in stools or black tarry stools. Denied noticing blood loss elsewhere. At time of interview, reported feeling somewhat better after arrival at the emergency room. Denied experiencing chest discomfort, shortness of breath, fever, chills, cough, nausea, vomiting, abdominal pain, diarrhea. EKG in the emergency room revealed sinus rhythm at [address]/T-wave changes are as reviewed by me. Laboratory evaluation revealed a hemoglobin of 6.0, WBC count 7.3, and platelet count 18, BUN 25, creatinine 1.4 (baseline 1.1), and glucose 131. ED documentation reviewed and case discussed with ED provider. 08/23/2023: I assumed care of the patient today. Patient received 2 units of blood and 1 units of platelet. Patient does feel better. Patient is long-standing essential tremor. Starting the patient on primidone 12.5 mg by mouth 3 times a day. Hematology input is awaited. Eating fair. Patient does live alone and does use a walker at baseline. Active Medications Acetaminophen (Acetaminophen Tab 500 Mg Tab) 1,000 mg PO Q6HR PRN PRN Reason: Fever and/ or Pain Last Admin: 08/23/23 01:44 Dose: 1,000 mg Amiodarone HCl (Amiodarone 200 Mg Tab) 200 mg PO DAILY [facility] Last Admin: 08/23/23 08:26 Dose: 200 mg Ascorbic Acid (Ascorbic Acid 500 Mg Tab) 2,000 mg PO DAILY [facility] Levothyroxine Sodium (Levothyroxine 125 Mcg Tab) 125 mcg PO DAILY@0630 [facility] Last Admin: 08/23/23 06:28 Dose: 125 mcg Metoprolol Succinate (Metoprolol Succinate (Er) 25 Mg Tab.Er.24h) 25 mg PO DAILY [facility] Last Admin: 08/23/23 08:26 Dose: 25 mg Multivitamins (Multivitamins, Thera 1 Each Tab) 1 each PO DAILY [facility] Last Admin: 08/23/23 08:26 Dose: 1 each Naloxone HCl (Naloxone 0.4 Mg/Ml 1 Ml Vial) 0.2 mg IV Q2M PRN PRN Reason: Opioid Reversal Pantoprazole Sodium (Pantoprazole 40 Mg Tablet) 40 mg PO DAILY [facility] Last Admin: 08/23/23 08:26 Dose: 40 mg Primidone (Primidone 25 Mg Tab) 12.5 mg PO TID [facility] On examination: VITAL SIGNS: [98.1, 76, 20, 113 potassium 58, 95% room air] GENERAL APPEARANCE: BMI 38.6, sitting up bed awake eating lunch. HEENT: Normal external appearance of nose and ear. Oral cavity normal EYES: Pupils equal. Conjunctiva normal. NECK: JVD not raised. Mass not palpable. RESPIRATORY: Respiratory effort normal. Lungs clear to auscultation. CARDIOVASCULAR: First and second sounds normal. No edema. ABDOMEN: Soft. Liver and spleen not palpable. No tenderness. No mass palpable. PSYCHIATRY: Alert and oriented x3. Mood and affect normal. 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 Toprol XL 25 mg a No anticoagulation because of MDS -Hypothyroid Synthroid 125 g a -Essential hypertension Toprol-XL 25 mg a day, Zestril 20 mg a day -GERD Omeprazole 20 mg a day -Depression and anxiety Patient supposed to start on BuSpar. Wishes to hold off on the same has not started the new prescription -Chronic gait dysfunction Uses a walker at baseline -Full code Discussed with patient. Follow with hematology.
[2023-08-23] MEDS: ASCORBIC ACID 500 MG TAB PO SCH (17:20)
[2023-08-23] MEDS: PRIMIDONE 25 MG TAB PO SCH ×2 (18:06→21:29)
--- NOTE | 2023-08-23 19:30 | P.CONS ---
History of Present Illness - Reason for Consult Consult date: 08/23/23 MDS Requesting physician: Loy Ferrer - Chief Complaint anemia, thrombocytopenia - History of Present Illness Patient is a 77 year old female with a signifcant history of MDS. She is a patient of Dr. Steve. She presented to [facility] ER on 06/14/23 with dark stools for the past 3 days. On evaluation she was found to have a hemoglobin of 6.7, and platelet count 20,000. The patient was transferred to [facility]. She had an EGD there, that was apparently negative. 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 She also had a bone marrow aspiration biopsy on 06/20/23. The full report is not available, but the flow cytometry did not show any significant abnormality. There was mild left shifted myeloid maturation, most likely due to steroid effect. The patient's other labs that were obtained from [facility], and reviewed showed somewhat borderline B12 levels, high ferritin in the 300 range, kappa light chain minimally elevated at 2.8, with the ratio also minimally elevated at 1.72. She did receive the RSV vaccine about a week or so prior to her presentation to [facility] ER. 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 At her initial visit her platelet counts had dropped into the 9000 range. She was started back on a longer steroid taper, and recommended rituximab. However her complete bone marrow report was subsequently received, showing evidence of myelodysplasia with decreased megakaryopoeisis, Rituximab was therefore discontinued. Steroids were continued in the hope that they would keep platelets above 10,000. The patient was referred to the [facility] and had consult on 08/14/23. They felt that she was not an optimal candidate for ASCT. Peripheral blood NGS was ordered to see if the patient had an IDH mutation, results pending. The patient's case was discussed in detail with Dr Schuster at the [facility]. If NGS was negative for an actual target, the plan would be to offer her HMA chemotherapy. Patient has continued on close follow up in clinic for CBC rechecks and has been receiving frequent platelets and PRBC infusions. Patient presented to the emergency room for increasing weakness, fatigue and shortness of breath. Upon admission hemoglobin was noted at 6.0, platelets 18,000, WBC 3.7. Patient received 2 units PRBCs and 1 dose of platelets. Repeat CBC today revealed WBC 3.3, hemoglobin 7.5, platelets 29,000. Patient denies any acute episodes of bleeding or petechiae. Patient reports at today's visit that she is feeling improvement in symptoms. Review of Systems 10 point ROS is negative except as stated in the HPI Past Medical History Past Medical History: Atrial Fibrillation, Cancer, Hypertension, Thyroid Disorder Additional Past Medical History / Comment(s): thrombocytopenia History of Any Multi-Drug Resistant Organisms: None Reported Past Surgical History: Tubal Ligation Additional Past Surgical History / Comment(s): thyroidectomy Past Anesthesia/Blood Transfusion Reactions: No Reported Reaction Past Psychological History: No Psychological Hx Reported Smoking Status: Former smoker Past Alcohol Use History: None Reported Past Drug Use History: None Reported Medications and Allergies Home Medications Medication Instructions Recorded Confirmed Type Amiodarone [Cordarone] 200 mg PO DAILY 06/14/23 08/22/23 History Levothyroxine Sodium [Synthroid] 125 mcg PO DAILY 06/14/23 08/22/23 History Metoprolol Succinate (ER) [Toprol 25 mg PO DAILY 06/14/23 08/22/23 History Xl] Pantoprazole [Protonix] 40 mg PO DAILY 06/14/23 08/22/23 History lisinopriL [Zestril] 20 mg PO DAILY 06/14/23 08/22/23 History Ascorbic Acid [Vitamin C] 2,000 mg PO DAILY 08/22/23 08/22/23 History Biotin 10 mg PO DAILY 08/22/23 08/22/23 History Calcium Carb/Mag Ox/Zinc Sulf 1 tab PO DAILY 08/22/23 08/22/23 History [Cjz-Jee-Lxtn 334-134-5 mg Tab] Cholecalciferol [Vitamin D3 (25 50 mcg PO DAILY 08/22/23 08/22/23 History Mcg = 1000 Iu)] Multivitamins, Thera [Multivitamin 1 tab PO DAILY 08/22/23 08/22/23 History (formulary)] Omeprazole 20 mg PO DAILY 08/22/23 08/22/23 History busPIRone HCL 15 mg PO DIRECTED 08/22/23 08/22/23 History lisinopriL [Zestril] 20 mg PO HS PRN 08/22/23 08/22/23 History Allergies Allergy/AdvReac Type Severity Reaction Status Date / Time No Known Allergies Allergy Verified 08/22/23 20:50 Physical Exam Vitals: Vital Signs Temp Pulse Pulse Resp BP BP Pulse Ox 08/23/23 16:27 97.8 F 74 20 147/72 96 08/23/23 14:05 98.1 F 76 20 113/58 95 08/23/23 11:32 68 16 119/62 95 08/23/23 08:00 97.8 F 69 16 137/67 98 08/23/23 06:41 64 18 135/65 96 08/23/23 06:03 98.4 F 61 18 154/70 96 08/23/23 04:37 98.0 F 61 18 139/71 96 08/23/23 04:17 98.2 F 67 18 129/67 95 08/23/23 04:07 98.4 F 69 18 132/63 95 08/23/23 03:15 98.3 F 64 18 125/64 95 08/23/23 02:00 66 18 134/67 97 08/23/23 01:47 98.4 F 67 18 113/50 96 08/23/23 01:27 98.1 F 71 18 127/60 95 08/23/23 01:16 98.2 F 75 18 124/57 95 08/23/23 00:51 98.3 F 72 18 132/62 97 08/22/23 22:53 98.2 F 70 18 134/65 96 08/22/23 22:33 98.2 F 70 18 134/62 96 08/22/23 21:00 66 18 130/56 95 08/22/23 19:44 68 18 122/52 97 Intake and Output 08/23/23 08/23/23 08/23/23 06:59 14:59 22:59 Intake Total 987 180 Balance 987 180 Intake: Oral 180 Blood Product 987 Platelet Pheresis Pas 367 Psoralen Unit [id number] Rc Irr As1 Unit 310 [id number] Rc Irr As1 Unit 310 [id number] Other: Voiding Method Toilet # Voids 2 Weight 98.883 kg - Constitutional General appearance: average body habitus, no acute distress - EENT Eyes: anicteric sclerae, EOMI ENT: hearing grossly normal - Respiratory Respiratory: bilateral: CTA - Cardiovascular Rhythm: regular Heart sounds: normal: S1, S2 - Gastrointestinal General gastrointestinal: soft, no tenderness - Integumentary Integumentary: no cyanotic, pale - Neurologic tremor, baseline - Musculoskeletal Musculoskeletal: generalized weakness - Psychiatric Psychiatric: A&O x's 3, appropriate affect, intact judgment & insight Results CBC & Chem 7: 08/23/23 06:30 08/22/23 19:17 Labs: Abnormal Lab Results - Last 24 Hours (Table) 08/22/23 08/22/23 08/22/23 Range/Units 19:17 19:17 19:17 WBC 3.7 L (3.8-10.6) k/uL RBC 1.79 L (3.80-5.40) m/uL Hgb 6.0 L* D (11.4-16.0) gm/dL Hct 16.8 L* (34.0-46.0) % RDW 20.3 H (11.5-15.5) % Plt Count 18 L* D (150-450) k/uL Retic Count (0.5-2.0) % BUN 25 H (7-17) mg/dL Creatinine 1.41 H (0.52-1.04) mg/dL Glucose 131 H (74-99) mg/dL Lactate Dehydrogenase 549 H (120-246) U/L Crossmatch 08/22/23 08/23/23 08/23/23 Range/Units 19:25 06:30 14:28 WBC 3.3 L (3.8-10.6) k/uL RBC 2.28 L (3.80-5.40) m/uL Hgb 7.5 L D (11.4-16.0) gm/dL Hct 21.4 L (34.0-46.0) % RDW 18.6 H (11.5-15.5) % Plt Count 29 L D (150-450) k/uL Retic Count 2.5 H (0.5-2.0) % BUN (7-17) mg/dL Creatinine (0.52-1.04) mg/dL Glucose (74-99) mg/dL Lactate Dehydrogenase (120-246) U/L Crossmatch See Detail Assessment and Plan (1) Anemia Current Visit: Yes Status: Acute Priority: High Code(s): D64.9 - ANEMIA, UNSPECIFIED SNOMED Code(s): 966196305 (2) Myelodysplasia (myelodysplastic syndrome) Current Visit: Yes Status: Acute Priority: High Code(s): D46.9 - MYELODYSPLASTIC SYNDROME, UNSPECIFIED SNOMED Code(s): 290589796 (3) Thrombocytopenia Current Visit: Yes Status: Acute Priority: High Code(s): D69.6 - THROMBOCYTOPENIA, UNSPECIFIED SNOMED Code(s): 315632129 Plan: MDS, cytopenias: -Full history in HPI -Ongoing thrombocytopenia and anemia. Patient has continued on close follow up in clinic for CBC rechecks and has been receiving frequent platelets and PRBC infusions. -The patient was referred to the [facility] and had consult on 08/14/23. They felt that she was not an optimal candidate for ASCT. Peripheral blood NGS was ordered to see if the patient had an IDH mutation, results pending. The patient's case was discussed in detail with Dr Schuster at the [facility]. If NGS was negative for an actual target, the plan would be to offer her HMA chemotherapy -Plan is to continue close clinic f/u for monitoring blood counts and for supportive transfusions as needed, pending workup and treatment plan -Hemolysis and anemia workup ordered -Please transfuse for hemoglobin less than 7 or if symptomatic and for platelets less than 10,000 or if symptomatic. Please use irradiated blood products only attests: I have seen and examined patient, performed H&P, developed impression and plan of care. Discussed with dictator. Agree with documentation, dictated as a scribe
[2023-08-23 21:28] LABS: % Iron Saturation 52.24 (12.00-45.00)
[2023-08-24 03:45] VITALS: RESP 18
[2023-08-24] MEDS: LEVOTHYROXINE 125 MCG TAB PO SCH (06:02)
[2023-08-24 08:24] VITALS: TEMP 98.7
[2023-08-24] MEDS: METOPROLOL SUCCINATE (ER) 25 MG TAB.ER.24H PO SCH (08:58)
[2023-08-24] MEDS: PANTOPRAZOLE 40 MG TABLET PO SCH (08:58)
[2023-08-24] MEDS: MULTIVITAMINS, THERA 1 EACH TAB PO SCH (08:58)
[2023-08-24] MEDS: PRIMIDONE 25 MG TAB PO SCH (08:59)
[2023-08-24] MEDS: AMIODARONE 200 MG TAB PO SCH (08:59)
[2023-08-24] MEDS: ASCORBIC ACID 500 MG TAB PO SCH (08:59)
[2023-08-24 09:39] LABS: Anisocytosis Slight; Basophils % (A) 0 %; Eosinophils % (A) 1 %; HCT 22.8 % (34.0-46.0); HGB 7.9 gm/dL (11.4-16.0); Lymphocytes # (A) 0.7 k/uL (1.0-4.8); Lymphocytes % (A) 25 %; MCH 32.6 pg (25.0-35.0); MCHC 34.7 g/dL (31.0-37.0); Macrocytosis Slight; Mean Platelet Volume 10.8; Monocytes # (A) 0.2 k/uL (0-1.0); Monocytes % (A) 8 %; Neutrophils # (A) 1.7 k/uL (1.3-7.7); Neutrophils % (A) 62 %; Poikilocytosis Slight; RBC 2.43 m/uL (3.80-5.40); RDW 18.9 % (11.5-15.5); WBC 2.8 k/uL (3.8-10.6)
[2023-08-24 09:56] LABS: Platelet Count 31 k/uL (150-450)
[2023-08-24 12:07] VITALS: BP 155/75; PULSE 68
--- NOTE | 2023-08-24 14:22 | P.PN ---
Subjective Progress Note Date: 08/24/23 Principal diagnosis: MDS Patient reports feeling improved at today's visit. S/P 2 units PRBCs and 1 dose platelets. Denies SOB and dizziness. Plan for discharge today, with plans for close outpt f/u for CBC rechecks Objective - Vital Signs Vital signs: Vital Signs Temp 98.7 F 08/24/23 12:00 Pulse 68 08/24/23 12:00 Resp 18 08/24/23 12:00 BP 155/75 08/24/23 12:00 Pulse Ox 99 08/24/23 12:00 FiO2 Intake & Output 08/23/23 08/24/23 08/24/23 18:59 06:59 18:59 Intake Total 180 Output Total 400 Balance 180 -400 Weight 98.883 kg 98.8 kg Intake: Oral 180 Output: Urine 400 Other: Voiding Method Toilet Toilet Toilet # Voids 2 1 - Constitutional General appearance: Present: average body habitus, no acute distress - EENT Eyes: Present: anicteric sclerae, EOMI ENT: Present: hearing grossly normal - Respiratory Details: breathing even and unlabored - Cardiovascular Details: skin warm and dry - Integumentary Integumentary: Absent: cyanotic - Neurologic Neurologic Comment(s): tremor - Psychiatric Psychiatric: Present: A&O x's 3 - Labs CBC & Chem 7: 08/24/23 09:06 08/22/23 19:17 Labs: Abnormal Lab Results - Last 24 Hours (Table) 08/22/23 08/23/23 08/24/23 Range/Units 19:17 14:28 09:06 WBC 2.8 L (3.8-10.6) k/uL RBC 2.43 L (3.80-5.40) m/uL Hgb 7.9 L (11.4-16.0) gm/dL Hct 22.8 L (34.0-46.0) % RDW 18.9 H (11.5-15.5) % Plt Count 31 L (150-450) k/uL Lymphocytes # 0.7 L (1.0-4.8) k/uL Retic Count 2.5 H (0.5-2.0) % % Saturation 52.24 H (12.00-45.00) Ferritin 825.0 H (10.0-291.0) ng/mL Lactate Dehydrogenase 549 H (120-246) U/L Assessment and Plan (1) Anemia Current Visit: Yes Status: Acute Priority: High Code(s): D64.9 - ANEMIA, UNSPECIFIED SNOMED Code(s): 187185648 (2) Myelodysplasia (myelodysplastic syndrome) Current Visit: Yes Status: Acute Priority: High Code(s): D46.9 - MYELODYSPLASTIC SYNDROME, UNSPECIFIED SNOMED Code(s): 702606284 (3) Thrombocytopenia Current Visit: Yes Status: Acute Priority: High Code(s): D69.6 - THROMBOCYTOPENIA, UNSPECIFIED SNOMED Code(s): 166211747 Plan: MDS, cytopenias: -Full history in HPI -Ongoing thrombocytopenia and anemia. Patient has continued on close follow up in clinic for CBC rechecks and has been receiving frequent platelets and PRBC infusions. -The patient was referred to the [facility] and had consult on 08/14/23. They felt that she was not an optimal candidate for ASCT. Peripheral blood NGS was ordered to see if the patient had an IDH mutation, results pending. The patient's case was discussed in detail with Dr Schuster at the [facility]. If NGS was negative for an actual target, the plan would be to offer her HMA chemotherapy -Plan is to continue close clinic f/u for monitoring blood counts and for supportive transfusions as needed, pending workup and treatment plan -Hemolysis workup negative. No nutritional deficiencies noted -S/p 2 units PRBCs, 1 dose platelets, counts improved. Hgb 7.9, platelets 31,000. No reported episodes of bleeding -Please transfuse for hemoglobin less than 7 or if symptomatic and for platelets less than 10,000 or if symptomatic. Please use irradiated blood products only
--- NOTE | 2023-08-24 16:35 | P.DS ---
Providers Date of admission: 08/23/23 08:24 Expected date of discharge: 08/24/23 Attending physician: Hal Frankel Consults: 08/22/23 21:07 Consult Physician Routine Consulting Provider: Doroteo Steve Consult Reason/Comments: Myelodysplasia Do you want consulting provider notified?: Yes Primary care physician: Isaura Varela [facility] Course: Patient is a 77-year-old female with a PMH of myelodysplastic syndrome (diagnosed 2-3 months ago, following at [facility] with Dr. Steve, reports there are plans of starting chemotherapy), hypertension, hypothyroidism, A. fib (not on anticoagulation due to severe anemia), chronic kidney disease, essential tremor involving face, who was sent to the emergency room from Dr. Steve's office for severe anemia with hemoglobin 5.6. Patient notes that she has also been feeling increasingly fatigued over the past several days. Notes her hemoglobin was previously around 9. Denies noticing blood in stools or black tarry stools. Denied noticing blood loss elsewhere. At time of interview, reported feeling somewhat better after arrival at the emergency room. Denied experiencing chest discomfort, shortness of breath, fever, chills, cough, nausea, vomiting, abdominal pain, diarrhea. EKG in the emergency room revealed sinus rhythm at [address]/T-wave changes are as reviewed by me. Laboratory evaluation revealed a hemoglobin of 6.0, WBC count 7.3, and platelet count 18, BUN 25, creatinine 1.4 (baseline 1.1), and glucose 131. ED documentation reviewed and case discussed with ED provider. 08/23/2023: I assumed care of the patient today. Patient received 2 units of blood and 1 units of platelet. Patient does feel better. Patient is long-standing essential tremor. Starting the patient on primidone 12.5 mg by mouth 3 times a day. Hematology input is awaited. Eating fair. Patient does live alone and does use a walker at baseline. August 24: Patient stable. Her tremor better, we will discharge on the current dose. Seen by hematology and clinical follow-up with them. I spoke to patient's Dr. Enrique Velasquez on the phone and told her to titrate the primidone. In conjunction with her PCP. On examination: VITAL SIGNS: 98.7, 68, 18, 155/75, 99% room air GENERAL APPEARANCE: Comfortable. HEENT: Normal external appearance of nose and ear. Oral cavity normal EYES: Pupils equal. Conjunctiva normal. NECK: JVD not raised. Mass not palpable. RESPIRATORY: Respiratory effort normal. Lungs clear to auscultation. CARDIOVASCULAR: First and second sounds normal. No edema. ABDOMEN: Soft. Liver and spleen not palpable. No tenderness. No mass palpable. PSYCHIATRY: Alert and oriented x3. Mood and affect normal. MUSCULAR skeletal: OA NEUROLOGICAL: Resting tremor-some improvement INVESTIGATIONS, reviewed in the clinical context: August 24: White count 2.8 hemoglobin 7.9 08/23/2023: White count 3.3 hemoglobin 7.5 platelets 29. 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 To be titrated upwards weekly -Paroxysmal atrial fibrillation currently in sinus rhythm Amiodarone 200 mg a day. Toprol XL 25 mg a day. No anticoagulation because of MDS -Hypothyroid Synthroid 125 g a -Essential hypertension Toprol-XL 25 mg a day, Zestril 20 mg a day -GERD Omeprazole 20 mg a day -Depression and anxiety Patient supposed to start on BuSpar. Wishes to hold off on the same has not started the new prescription -Chronic gait dysfunction Uses a walker at baseline -Full code Disposition: Home Plan - Discharge Summary Discharge Rx Participant: No New Discharge Prescriptions: New Primidone [Mysoline] 12.5 mg PO TID #90 tab Continue Pantoprazole [Protonix] 40 mg PO DAILY Levothyroxine Sodium [Synthroid] 125 mcg PO DAILY Amiodarone [Cordarone] 200 mg PO DAILY Multivitamins, Thera [Multivitamin (formulary)] 1 tab PO DAILY Ascorbic Acid [Vitamin C] 2,000 mg PO DAILY Biotin 10 mg PO DAILY Metoprolol Succinate (ER) [Toprol XL] 25 mg PO DAILY busPIRone HCL 15 mg PO DIRECTED Omeprazole 20 mg PO DAILY Cholecalciferol [Vitamin D3 (25 Mcg = 1000 Iu)] 50 mcg PO DAILY Calcium Carb/Mag Ox/Zinc Sulf [Jig-Jar-Xmps 334-134-5 mg Tab] 1 tab PO DAILY Changed lisinopriL [Zestril] 20 mg PO HS #0 Discontinued lisinopriL [Zestril] 20 mg PO DAILY Discharge Medication List Amiodarone [Cordarone] 200 mg PO DAILY 06/14/23 [History] Levothyroxine Sodium [Synthroid] 125 mcg PO DAILY 06/14/23 [History] Metoprolol Succinate (ER) [Toprol XL] 25 mg PO DAILY 06/14/23 [History] Pantoprazole [Protonix] 40 mg PO DAILY 06/14/23 [History] Ascorbic Acid [Vitamin C] 2,000 mg PO DAILY 08/22/23 [History] Biotin 10 mg PO DAILY 08/22/23 [History] Calcium Carb/Mag Ox/Zinc Sulf [Azl-Vxg-Vtoy 334-134-5 mg Tab] 1 tab PO DAILY 08/22/23 [History] Cholecalciferol [Vitamin D3 (25 Mcg = 1000 Iu)] 50 mcg PO DAILY 08/22/23 [Hist ory] Multivitamins, Thera [Multivitamin (formulary)] 1 tab PO DAILY 08/22/23 [History] Omeprazole 20 mg PO DAILY 08/22/23 [History] busPIRone HCL 15 mg PO DIRECTED 08/22/23 [History] Primidone [Mysoline] 12.5 mg PO TID #90 tab 08/24/23 [Rx] lisinopriL [Zestril] 20 mg PO HS #0 08/24/23 [Rx] Follow up Appointment(s)/Referral(s): Doroteo Steve [Family Provider] - 08/29/23 8:30 am (At [facility] location ) Isaura Varela MD [Primary Care Provider] - 1 Week (office will call to set up appointment) Patient Instructions/Handouts: Anemia (GEN) Discharge Disposition: HOME SELF-CARE
[2023-08-25 13:39] LABS: Methylmalonic Acid 0.25 umol/L (<0.40)
== END 2023-08-24 15:46 | disposition home or self-care (01) | DRG 812 ==
LOC: EC 15:57 → 3SCARD 21:07 → OBSVTOIN 08-23 08:24 → 3SCARD 08-23 13:18
PROVIDERS: ADMIT Hospitalist; ATTEND Hospitalist
PROC: 30233R1 Transfusion of Nonautologous Platelets into Peripheral Vein, Percutaneous Approach (ICD-10-PCS; principal; 2023-08-22)
PROC: 30233N1 Transfusion of Nonautologous Red Blood Cells into Peripheral Vein, Percutaneous Approach (ICD-10-PCS; 2023-08-23)
DX: D46.9 Myelodysplastic syndrome, unspecified (principal); D61.818 Other pancytopenia; N17.9 Acute kidney failure, unspecified; D63.8 Anemia in other chronic diseases classified elsewhere; Z28.21 Immunization not carried out because of patient refusal; E89.0 Postprocedural hypothyroidism; F32.A Depression, unspecified; M10.9 Gout, unspecified; D63.1 Anemia in chronic kidney disease; F41.9 Anxiety disorder, unspecified; G25.0 Essential tremor; I12.9 Hypertensive chronic kidney disease with stage 1 through stage 4 chronic kidney disease, or unspecified chronic kidney disease; I48.0 Paroxysmal atrial fibrillation; K21.9 Gastro-esophageal reflux disease without esophagitis; N18.9 Chronic kidney disease, unspecified; T38.0X5A Adverse effect of glucocorticoids and synthetic analogues, initial encounter; Z79.890 Hormone replacement therapy; Z79.899 Other long term (current) drug therapy
CPT/HCPCS: 36415; 36430; 80053; 82525; 82607; 82728; 82746; 83540; 83550; 83615; 83921; 85025; 85045; 86850; 86900; 86901; 86920; 93005; 94760; 99291

== ENCOUNTER 2023-09-05 10:43 | Emergency (ER) | payer MEDICARE, OTHER ==
--- NOTE | 2023-09-05 11:18 | ED ---
General Adult HPI - General Source: patient, RN notes reviewed, old records reviewed Mode of arrival: ambulatory Limitations: no limitations <Keon Whitaker Carrie - Last Filed: 09/05/23 11:17> <Jacoby Parker - Last Filed: 09/05/23 14:46> - General Stated complaint: TRANSFUSION Time Seen by Provider: 09/05/23 11:18 - History of Present Illness Initial comments: 77-year-old female presents emergency Department chief complaint of needing blood transfusion. Patient was sent over by hematologists as she has a hemoglobin 6.8 and platelets of 11. She was told that she needs blood transfusion and platelet transfusion. Patient has MDS (TheapalKeon Butler) 77-year-old female presenting to the ED with a chief complaint of abnormal labs. Patient states for the past day she has been feeling lightheaded. 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 States that she saw her physician who did blood work which reportedly showed low hemoglobin and low platelet count and advised patient to present to the ED for evaluation. Patient denies chest pain or shortness breath. Denies changes in bowel movements.She had a colonoscopy one month ago which was reportedly unremarkable. No other complaints. (Jacoby Parker) - Related Data Home Medications Medication Instructions Recorded Confirmed Amiodarone [Cordarone] 200 mg PO DAILY 06/14/23 08/31/23 Levothyroxine Sodium [Synthroid] 125 mcg PO DAILY 06/14/23 08/31/23 Metoprolol Succinate (ER) [Toprol 25 mg PO DAILY 06/14/23 08/31/23 XL] Pantoprazole [Protonix] 40 mg PO DAILY 06/14/23 08/31/23 Ascorbic Acid [Vitamin C] 2,000 mg PO DAILY 08/22/23 08/31/23 Biotin 10 mg PO DAILY 08/22/23 08/31/23 Calcium Carb/Mag Ox/Zinc Sulf 1 tab PO DAILY 08/22/23 08/31/23 [Jkh-Ilj-Prru 334-134-5 mg Tab] Cholecalciferol [Vitamin D3 (25 50 mcg PO DAILY 08/22/23 08/31/23 Mcg = 1000 Iu)] Multivitamins, Thera [Multivitamin 1 tab PO DAILY 08/22/23 08/31/23 (formulary)] Omeprazole 20 mg PO DAILY 08/22/23 08/31/23 busPIRone HCL 15 mg PO DIRECTED 08/22/23 08/31/23 Primidone 25 mg PO TID 08/31/23 08/31/23 Previous Rx's Medication Instructions Recorded Primidone [Mysoline] 12.5 mg PO TID #90 tab 08/24/23 lisinopriL [Zestril] 20 mg PO HS #0 08/24/23 Allergies Allergy/AdvReac Type Severity Reaction Status Date / Time No Known Allergies Allergy Verified 09/05/23 11:26 Review of Systems ROS Other: All systems not noted in ROS Statement are negative. <Keon Whitaker - Last Filed: 09/05/23 11:17> ROS Other: All systems not noted in ROS Statement are negative. <Jacoby Parker - Last Filed: 09/05/23 14:46> ROS Statement: Those systems with pertinent positive or pertinent negative responses have been documented in the HPI. Past Medical History Past Medical History: Atrial Fibrillation, Cancer, Hypertension, Thyroid Disorder Additional Past Medical History / Comment(s): thrombocytopenia History of Any Multi-Drug Resistant Organisms: None Reported Past Surgical History: Tubal Ligation Additional Past Surgical History / Comment(s): thyroidectomy Past Anesthesia/Blood Transfusion Reactions: No Reported Reaction Smoking Status: Former smoker <Keon Whitaker - Last Filed: 09/05/23 11:17> General Exam <Keon Whitaker - Last Filed: 09/05/23 11:17> General appearance: alert, in no apparent distress ENT exam: Present: normal exam Neck exam: Present: normal inspection Respiratory exam: Present: normal lung sounds bilaterally Cardiovascular Exam: Present: regular rate, normal rhythm GI/Abdominal exam: Present: soft (No tenderness to palpation. No rebound guarding or rigidity.) Back exam: Present: normal inspection Neurological exam: Present: alert, oriented X3 Skin exam: Present: warm, dry <Jacoby Parker - Last Filed: 09/05/23 14:46> - General Exam Comments Initial Comments: Visual Physical Exam Vital signs reviewed General: Well-appearing, nontoxic, no acute distress. Head: Normocephalic, atraumatic Eyes: PERRLA, EOMI ENT: Airway patent Chest: Nonlabored breathing Skin: No visual rash, normal skin tone Neuro: Alert and oriented 3 Musculoskeletal: No gross abnormalities (Keon Whitaker) Course Vital Signs 09/05/23 09/05/23 09/05/23 11:20 12:50 13:00 Temperature 98.8 F 99 F 97.9 F Pulse Rate 73 75 66 Respiratory 18 18 18 Rate Blood Pressure 132/76 148/72 153/73 O2 Sat by Pulse 95 97 Oximetry 09/05/23 09/05/23 09/05/23 13:20 14:00 14:30 Temperature 97.9 F Pulse Rate 69 66 72 Respiratory 18 18 18 Rate Blood Pressure 157/74 165/79 157/81 O2 Sat by Pulse 96 98 Oximetry Medical Decision Making <Keon Whitaker - Last Filed: 09/05/23 11:17> - Lab Data Result diagrams: 09/05/23 11:43 09/05/23 11:43 <Jacoby Parker - Last Filed: 09/05/23 14:46> - Medical Decision Making I completed the quick note portion of this chart signed Keon Whitaker PA-C (Keon Whitaker) Was pt. sent in by a medical professional or institution (LESLY Causey, THRESHING MACHINE OPERATOR, urgent care, hospital, or custodial...) When possible be specific @ -No Did you speak to anyone other than the patient for history (EMS, parent, family, police, friend...)? What history was obtained from this source @ -No Did you review nursing and triage notes (agree or disagree)? Why? @ -I reviewed and agree with nursing and triage notes Were old charts reviewed (outside hosp., previous admission, EMS record, old EKG, old radiological studies, urgent care reports/EKG's, custodial records)? Report findings @ -No old charts were reviewed Differential Diagnosis (chest pain, altered mental status, abdominal pain women, abdominal pain men, vaginal bleeding, weakness, fever, dyspnea, syncope, headache, dizziness, GI bleed, back pain, seizure, CVA, palpatations, mental health, musculoskeletal)? @ -Differential GI Bleed: Esophageal varices, aortoenteric fistula, Madeline-Treadwell, gastritis, peptic ulcer disease, diverticulosis, inflammatory bowel disease, hemorrhoids, fissure, colitis, malignancy, Meckels diverticulum, this is not meant to be an all- inclusive list. EKG interpreted by me (3pts min.). @ -EKG interpreted by me showing a sinus rhythm at [address]-T wave changes. MO 156, QRS 82, QT/QTc 400/423. X-rays interpreted by me (1pt min.). @ -None done CT interpreted by me (1pt min.). @ -None done U/S interpreted by me (1pt. min.). @ -None done What testing was considered but not performed or refused? (CT, X-rays, U/S, labs)? Why? @ -Patient was to have a rectal exam to rule out occult blood however at this time patient refused. Patient notes that her daughter is a nurse practitioner for Dr. [employer] of [employer] and reportedly had a colonoscopy performed by her last month which was unremarkable. What meds were considered but not given or refused? Why? @ -None Did you discuss the management of the patient with other professionals (professionals i.e. , PA, THRESHING MACHINE OPERATOR, lab, RT, psych nurse, protective services social worker, machine clothing worker, teacher, executive officer, case assistant)? Give summary @ -No Was smoking cessation discussed for >3mins.? @ -No Was critical care preformed (if so, how long)? @ -No Were there social determinants of health that impacted care today? How? ( Homelessness, low income, unemployed, alcoholism, drug addiction, transportation, low edu. Level, literacy, decrease access to med. care, group home, rehab)? @ -No Was there de-escalation of care discussed even if they declined (Discuss DNR or withdrawal of care, Hospice)? DNR status @ -No What co-morbidities impacted this encounter? (DM, HTN, Smoking, COPD, CAD, Cancer, CVA, ARF, Chemo, Hep., AIDS, mental health diagnosis, sleep apnea, morbid obesity)? @ -None Was patient admitted / discharged? Hospital course, mention meds given and route, prescriptions, significant lab abnormalities, going to OR and other pertinent info. @ -Discharge 77 year old female with a past medical history significant for myelodysplastic syndrome presenting today with anemia on outpatient labs. Laboratory studies reviewed. Hematology panel significant for a hemoglobin of 7.2, platelets@12. Chemistry panel unremarkable. Patient given a unit of RBCs and platelets. Patient was offered observation stay for serial hemoglobins however patient at this time reports that she would just like to have a transfusion and would like to go home. At this time, patient has no other complaints. Patient discharged home in stable condition. Discussed return precautions with patient verbalizes agreement. Undiagnosed new problem with uncertain prognosis? @ -No Drug Therapy requiring intensive monitoring for toxicity (Heparin, Nitro, Insulin, Cardizem)? @ -No Were any procedures done? @ -No Diagnosis/symptom? @ -Anemia, history of myelodysplastic syndrome Acute, or Chronic, or Acute on Chronic? @ -Acute Uncomplicated (without systemic symptoms) or Complicated (systemic symptoms)? @ -Complicated Side effects of treatment? @ -No Exacerbation, Progression, or Severe Exacerbation? @ -No Poses a threat to life or bodily function? How? (Chest pain, USA, [place], pneumonia, PE, COPD, DKA, ARF, appy, cholecystitis, CVA, Diverticulitis, Homicidal, Suicidal, threat to staff... and all critical care pts) @ -No (Jacoby Parker) - Lab Data Lab Results 09/05/23 09/05/23 09/05/23 Range/Units 11:12 11:43 11:43 WBC 3.1 L (3.8-10.6) k/uL RBC 2.15 L (3.80-5.40) m/uL Hgb 7.2 L (11.4-16.0) gm/dL Hct 20.3 L (34.0-46.0) % MCV 94.6 (80.0-100.0) fL MCH 33.3 (25.0-35.0) pg MCHC 35.2 (31.0-37.0) g/dL RDW 20.0 H (11.5-15.5) % Plt Count 12 L* D (150-450) k/uL MPV 10.2 Neutrophils % 58 % Lymphocytes % 29 % Monocytes % 8 % Eosinophils % 1 % Basophils % 0 % Neutrophils # 1.8 (1.3-7.7) k/uL Lymphocytes # 0.9 L (1.0-4.8) k/uL Monocytes # 0.2 (0-1.0) k/uL Eosinophils # 0.0 (0-0.7) k/uL Basophils # 0.0 (0-0.2) k/uL Poikilocytosis Slight Anisocytosis Moderate Macrocytosis Slight Sodium 139 (137-145) mmol/L Potassium 4.1 (3.5-5.1) mmol/L Chloride 106 (98-107) mmol/L Carbon Dioxide 25 (22-30) mmol/L Anion Gap 8 mmol/L BUN 17 (7-17) mg/dL Creatinine 1.01 (0.52-1.04) mg/dL Est GFR (CKD-EPI)AfAm 61 (>60 ml/min/1.73 sqM) Est GFR (CKD-EPI)NonAf 53 (>60 ml/min/1.73 sqM) Glucose 103 H (74-99) mg/dL Calcium 8.7 (8.4-10.2) mg/dL Total Bilirubin 0.6 (0.2-1.3) mg/dL AST 25 (14-36) U/L ALT 25 (4-34) U/L Alkaline Phosphatase 59 (38-126) U/L Total Protein 6.3 (6.3-8.2) g/dL Albumin 3.5 (3.5-5.0) g/dL Blood Type Blood Type Recheck Bld Type Recheck Status Antibody Screen Crossmatch Transfuse Platelets 09/05/23 Spec Expiration Date 09/05/23 Range/Units 11:45 WBC (3.8-10.6) k/uL RBC (3.80-5.40) m/uL Hgb (11.4-16.0) gm/dL Hct (34.0-46.0) % MCV (80.0-100.0) fL MCH (25.0-35.0) pg MCHC (31.0-37.0) g/dL RDW (11.5-15.5) % Plt Count (150-450) k/uL MPV Neutrophils % % Lymphocytes % % Monocytes % % Eosinophils % % Basophils % % Neutrophils # (1.3-7.7) k/uL Lymphocytes # (1.0-4.8) k/uL Monocytes # (0-1.0) k/uL Eosinophils # (0-0.7) k/uL Basophils # (0-0.2) k/uL Poikilocytosis Anisocytosis Macrocytosis Sodium (137-145) mmol/L Potassium (3.5-5.1) mmol/L Chloride (98-107) mmol/L Carbon Dioxide (22-30) mmol/L Anion Gap mmol/L BUN (7-17) mg/dL Creatinine (0.52-1.04) mg/dL Est GFR (CKD-EPI)AfAm (>60 ml/min/1.73 sqM) Est GFR (CKD-EPI)NonAf (>60 ml/min/1.73 sqM) Glucose (74-99) mg/dL Calcium (8.4-10.2) mg/dL Total Bilirubin (0.2-1.3) mg/dL AST (14-36) U/L ALT (4-34) U/L Alkaline Phosphatase (38-126) U/L Total Protein (6.3-8.2) g/dL Albumin (3.5-5.0) g/dL Blood Type O Positive Blood Type Recheck O Pos Bld Type Recheck Status No Antibody Screen NEGATIVE Crossmatch See Detail Transfuse Platelets Spec Expiration Date 09/08/2023 - 2342 Disposition <Keon Whitaker - Last Filed: 09/05/23 11:17> Is patient prescribed a controlled substance at d/c from ED?: No Time of Disposition: 14:46 <Jacoby Parker - Last Filed: 09/05/23 14:46> Clinical Impression: Anemia Disposition: HOME SELF-CARE Condition: Good Additional Instructions: Please return to the Emergency Department if symptoms worsen or any other concerns. Please follow-up with your PCP/Bridge Teacher. Referrals: Isaura Varela MD [Primary Care Provider] - 1-2 days
[2023-09-05 11:52] LABS: Anisocytosis Moderate; Basophils % (A) 0 %; Eosinophils % (A) 1 %; HCT 20.3 % (34.0-46.0); HGB 7.2 gm/dL (11.4-16.0); Lymphocytes # (A) 0.9 k/uL (1.0-4.8); Lymphocytes % (A) 29 %; MCH 33.3 pg (25.0-35.0); MCHC 35.2 g/dL (31.0-37.0); MCV 94.6 fL (80.0-100.0); Macrocytosis Slight; Mean Platelet Volume 10.2; Monocytes # (A) 0.2 k/uL (0-1.0); Monocytes % (A) 8 %; Neutrophils # (A) 1.8 k/uL (1.3-7.7); Neutrophils % (A) 58 %; Poikilocytosis Slight; RBC 2.15 m/uL (3.80-5.40); WBC 3.1 k/uL (3.8-10.6)
[2023-09-05 12:07] LABS: Platelet Count 12 k/uL (150-450)
[2023-09-05 12:15] LABS: ALT 25 U/L (4-34); AST 25 U/L (14-36); African American GFR (CKD) 61 (>60 ml/min/1.73 sqM); Albumin 3.5 g/dL (3.5-5.0); Alkaline Phosphatase 59 U/L (38-126); Anion Gap 8 mmol/L; Blood Urea Nitrogen 17 mg/dL (7-17); Calcium 8.7 mg/dL (8.4-10.2); Carbon Dioxide 25 mmol/L (22-30); Chloride 106 mmol/L (98-107); Glucose 103 mg/dL (74-99); Non-African American GFR(CKD) 53 (>60 ml/min/1.73 sqM); Potassium 4.1 mmol/L (3.5-5.1); Sodium 139 mmol/L (137-145); Total Bilirubin 0.6 mg/dL (0.2-1.3); Total Protein 6.3 g/dL (6.3-8.2)
[2023-09-05 17:51] VITALS: RESP 18
[2023-09-05 19:29] VITALS: BP 153/66; PULSE 72; TEMP 98.2
== END 2023-09-05 19:10 | disposition home or self-care (01) ==
LOC: EC 10:43
DX: D64.9 Anemia, unspecified (principal); I48.91 Unspecified atrial fibrillation; I10 Essential (primary) hypertension; E07.9 Disorder of thyroid, unspecified; Z87.891 Personal history of nicotine dependence; Z79.890 Hormone replacement therapy; Z79.899 Other long term (current) drug therapy
CPT/HCPCS: 36415; 93005; 86900; 86901; 80053; 85025; 86850; 86920; 99284; 36430; P9016; P9073

== ENCOUNTER 2023-09-13 11:44 | Emergency (ER) | payer MEDICARE, OTHER ==
--- NOTE | 2023-09-13 12:05 | ED ---
General Adult HPI - General Source: patient, RN notes reviewed, old records reviewed Mode of arrival: ambulatory Limitations: no limitations <Keon Whitaker - Last Filed: 09/13/23 12:04> <Gabe Beckett - Last Filed: 09/13/23 19:13> - General Chief complaint: Recheck/Abnormal Lab/Rx Stated complaint: blood transfusion Time Seen by Provider: 09/13/23 12:04 - History of Present Illness Initial comments: 77-year-old female presents emergency department for blood transfusion. Patient was sent her communications equipment supervisor. This is a chronic issue she states that they're concerned about her going homeall weekendn without infusion. She has routine transfusions (Keon Whitaker) - Related Data Home Medications Medication Instructions Recorded Confirmed Amiodarone [Cordarone] 200 mg PO DAILY 06/14/23 09/11/23 Levothyroxine Sodium [Synthroid] 125 mcg PO DAILY 06/14/23 09/11/23 Metoprolol Succinate (ER) [Toprol 25 mg PO DAILY 06/14/23 09/11/23 XL] Pantoprazole [Protonix] 40 mg PO DAILY 06/14/23 09/11/23 Ascorbic Acid [Vitamin C] 2,000 mg PO DAILY 08/22/23 09/11/23 Biotin 10 mg PO DAILY 08/22/23 09/11/23 Calcium Carb/Mag Ox/Zinc Sulf 1 tab PO DAILY 08/22/23 09/11/23 [Nai-Qzp-Trhf 334-134-5 mg Tab] Cholecalciferol [Vitamin D3 (25 50 mcg PO DAILY 08/22/23 09/11/23 Mcg = 1000 Iu)] Multivitamins, Thera [Multivitamin 1 tab PO DAILY 08/22/23 09/11/23 (formulary)] Omeprazole 20 mg PO DAILY 08/22/23 09/11/23 busPIRone HCL 15 mg PO DIRECTED 08/22/23 09/11/23 Previous Rx's Medication Instructions Recorded Primidone [Mysoline] 12.5 mg PO TID #90 tab 08/24/23 lisinopriL [Zestril] 20 mg PO HS #0 08/24/23 Allergies Allergy/AdvReac Type Severity Reaction Status Date / Time No Known Allergies Allergy Verified 09/13/23 11:54 Review of Systems ROS Other: All systems not noted in ROS Statement are negative. <Keon Whitaker - Last Filed: 09/13/23 12:04> ROS Other: All systems not noted in ROS Statement are negative. <Gabe Beckett - Last Filed: 09/13/23 19:13> ROS Statement: Those systems with pertinent positive or pertinent negative responses have been documented in the HPI. Past Medical History Past Medical History: Atrial Fibrillation, Cancer, Hypertension, Thyroid Disor clare Additional Past Medical History / Comment(s): thrombocytopenia History of Any Multi-Drug Resistant Organisms: None Reported Past Surgical History: Tubal Ligation Additional Past Surgical History / Comment(s): thyroidectomy Past Anesthesia/Blood Transfusion Reactions: No Reported Reaction Past Psychological History: No Psychological Hx Reported Smoking Status: Former smoker <Keon Whitaker - Last Filed: 09/13/23 12:04> General Exam Limitations: no limitations <Keon Whitaker - Last Filed: 09/13/23 12:04> General appearance: alert, in no apparent distress Head exam: Present: atraumatic, normocephalic Eye exam: Present: normal appearance, PERRL Respiratory exam: Present: normal lung sounds bilaterally. Absent: respiratory distress Cardiovascular Exam: Present: regular rate, normal rhythm GI/Abdominal exam: Present: soft. Absent: distended, tenderness Neurological exam: Present: alert, oriented X3. Absent: motor sensory deficit Skin exam: Present: warm, dry, intact. Absent: cyanosis, diaphoretic <Gabe Beckett - Last Filed: 09/13/23 19:13> - General Exam Comments Initial Comments: Visual Physical Exam Vital signs reviewed General: Well-appearing, nontoxic, no acute distress. Head: Normocephalic, atraumatic Eyes: PERRLA, EOMI ENT: Airway patent Chest: Nonlabored breathing Skin: No visual rash, normal skin tone Neuro: Alert and oriented 3 Musculoskeletal: No gross abnormalities (Keon Whitaker) Course Vital Signs 09/13/23 09/13/23 09/13/23 11:54 14:14 17:02 Temperature 98.8 F Pulse Rate 74 65 77 Respiratory 16 18 20 Rate Blood Pressure 145/73 151/63 149/79 O2 Sat by Pulse 94 L 96 99 Oximetry 09/13/23 19:06 Temperature 98.6 F Pulse Rate 68 Respiratory 18 Rate Blood Pressure 137/70 O2 Sat by Pulse Oximetry Medical Decision Making <Keon Whitaker - Last Filed: 09/13/23 12:04> - Lab Data Result diagrams: 09/13/23 12:29 09/13/23 12:29 <Gabe Beckett - Last Filed: 09/13/23 19:13> - Medical Decision Making I completed the quick note portion of this chart signed Keon Whitaker PA-C (Keon Whitaker) Was pt. sent in by a medical professional or institution (, PA, EARLY HEAD START TEACHER, urgent care, hospital, or long term...) When possible be specific @ -No Did you speak to anyone other than the patient for history (EMS, parent, family, police, friend...)? What history was obtained from this source @ -No Did you review nursing and triage notes (agree or disagree)? Why? @ -I reviewed and agree with nursing and triage notes Were old charts reviewed (outside hosp., previous admission, EMS record, old EKG, old radiological studies, urgent care reports/EKG's, long term records)? Report findings @ -No old charts were reviewed Differential Diagnosis (chest pain, altered mental status, abdominal pain women, abdominal pain men, vaginal bleeding, weakness, fever, dyspnea, syncope, headache, dizziness, GI bleed, back pain, seizure, CVA, palpatations, mental health, musculoskeletal)? @ -Anemia secondary to MDS EKG interpreted by me (3pts min.). @ -As above X-rays interpreted by me (1pt min.). @ -None done CT interpreted by me (1pt min.). @ -None done U/S interpreted by me (1pt. min.). @ -None done What testing was considered but not performed or refused? (CT, X-rays, U/S, labs)? Why? @ -None What meds were considered but not given or refused? Why? @ -None Did you discuss the management of the patient with other professionals (professionals i.e. , PA, EARLY HEAD START TEACHER, lab, RT, psych nurse, social worker aide, database designer, teacher, environmental compliance officer, case packer)? Give summary @ -No Was smoking cessation discussed for >3mins.? @ -No Was critical care preformed (if so, how long)? @ -No Were there social determinants of health that impacted care today? How? (Homelessness, low income, unemployed, alcoholism, drug addiction, transportation, low edu. Level, literacy, decrease access to med. care, [facility], rehab)? @ -No Was there de-escalation of care discussed even if they declined (Discuss DNR or withdrawal of care, Hospice)? DNR status @ -No What co-morbidities impacted this encounter? (DM, HTN, Smoking, COPD, CAD, Cancer, CVA, ARF, Chemo, Hep., AIDS, mental health diagnosis, sleep apnea, morbid obesity)? @ -MDS, chronic anemia Was patient admitted / discharged? Hospital course, mention meds given and route, prescriptions, significant lab abnormalities, going to OR and other pertinent info. @ -[Patient sent in by her communications equipment supervisor for blood transfusion. Patient receives weekly transfusion for myelodysplastic syndrome. She has no complaints. Hemoglobin is 7.6, she is transfused one unit in the emergency department. Stable for discharge. Undiagnosed new problem with uncertain prognosis? @ -No Drug Therapy requiring intensive monitoring for toxicity (Heparin, Nitro, Insulin, Cardizem)? @ -No Were any procedures done? @ -No Diagnosis/symptom? @ -Anemia Acute, or Chronic, or Acute on Chronic? @Chronic Uncomplicated (without systemic symptoms) or Complicated (systemic symptoms)? @ -default Side effects of treatment? @ -No Exacerbation, Progression, or Severe Exacerbation? @ -No Poses a threat to life or bodily function? How? (Chest pain, [place], [place], pneumonia, PE, COPD, DKA, ARF, appy, cholecystitis, CVA, Diverticulitis, Homicidal, Suicidal, threat to staff... and all critical care pts) @Low risk at this time (Gabe Beckett) - Lab Data Lab Results 09/13/23 09/13/23 09/13/23 Range/Units 12:29 12:29 12:29 WBC 2.9 L (3.8-10.6) k/uL RBC 2.30 L (3.80-5.40) m/uL Hgb 7.6 L (11.4-16.0) gm/dL Hct 22.1 L (34.0-46.0) % MCV 95.9 (80.0-100.0) fL MCH 33.0 (25.0-35.0) pg MCHC 34.4 (31.0-37.0) g/dL RDW 19.5 H (11.5-15.5) % Plt Count 22 L D (150-450) k/uL MPV 8.7 Neutrophils % 61 % Lymphocytes % 29 % Monocytes % 7 % Eosinophils % 1 % Basophils % 0 % Neutrophils # 1.8 (1.3-7.7) k/uL Lymphocytes # 0.8 L (1.0-4.8) k/uL Monocytes # 0.2 (0-1.0) k/uL Eosinophils # 0.0 (0-0.7) k/uL Basophils # 0.0 (0-0.2) k/uL Hypochromasia Slight Poikilocytosis Slight Anisocytosis Slight Macrocytosis Slight Sodium 140 (137-145) mmol/L Potassium 4.4 (3.5-5.1) mmol/L Chloride 105 (98-107) mmol/L Carbon Dioxide 29 (22-30) mmol/L Anion Gap 6 mmol/L BUN 14 (7-17) mg/dL Creatinine 1.11 H (0.52-1.04) mg/dL Est GFR (CKD-EPI)AfAm 55 (>60 ml/min/1.73 sqM) Est GFR (CKD-EPI)NonAf 48 (>60 ml/min/1.73 sqM) Glucose 101 H (74-99) mg/dL Calcium 8.6 (8.4-10.2) mg/dL Blood Type O Positive Blood Type Recheck O Pos Bld Type Recheck Status No Antibody Screen NEGATIVE Crossmatch See Detail Spec Expiration Date 09/16/20232328 Disposition <Keon Whitaker M - Last Filed: 09/13/23 12:04> Is patient prescribed a controlled substance at d/c from ED?: No Time of Disposition: 22:30 <Gabe Beckett - Last Filed: 09/13/23 19:13> Clinical Impression: Myelodysplasia (myelodysplastic syndrome), Anemia Disposition: HOME SELF-CARE Condition: Fair Instructions (If sedation given, give patient instructions): Anemia (ED) Referrals: Isaura Varela MD [Primary Care Provider] - 1-2 days
[2023-09-13 12:56] LABS: Anisocytosis Slight; Basophils % (A) 0 %; Eosinophils % (A) 1 %; HCT 22.1 % (34.0-46.0); HGB 7.6 gm/dL (11.4-16.0); Hypochromasia Slight; Lymphocytes # (A) 0.8 k/uL (1.0-4.8); Lymphocytes % (A) 29 %; MCHC 34.4 g/dL (31.0-37.0); MCV 95.9 fL (80.0-100.0); Macrocytosis Slight; Mean Platelet Volume 8.7; Monocytes # (A) 0.2 k/uL (0-1.0); Monocytes % (A) 7 %; Neutrophils # (A) 1.8 k/uL (1.3-7.7); Neutrophils % (A) 61 %; Poikilocytosis Slight; RDW 19.5 % (11.5-15.5); WBC 2.9 k/uL (3.8-10.6)
[2023-09-13 13:05] LABS: African American GFR (CKD) 55 (>60 ml/min/1.73 sqM); Anion Gap 6 mmol/L; Blood Urea Nitrogen 14 mg/dL (7-17); Calcium 8.6 mg/dL (8.4-10.2); Carbon Dioxide 29 mmol/L (22-30); Chloride 105 mmol/L (98-107); Glucose 101 mg/dL (74-99); Non-African American GFR(CKD) 48 (>60 ml/min/1.73 sqM); Potassium 4.4 mmol/L (3.5-5.1); Sodium 140 mmol/L (137-145)
[2023-09-13 13:12] LABS: Platelet Count 22 k/uL (150-450)
[2023-09-13 19:13] VITALS: RESP 18
[2023-09-13 19:53] VITALS: TEMP 98.8
[2023-09-13 21:17] VITALS: BP 175/79; PULSE 66
== END 2023-09-13 21:40 | disposition home or self-care (01) ==
LOC: EC 11:44
DX: D46.9 Myelodysplastic syndrome, unspecified (principal); I48.91 Unspecified atrial fibrillation; I10 Essential (primary) hypertension; E07.9 Disorder of thyroid, unspecified; Z87.891 Personal history of nicotine dependence; Z79.890 Hormone replacement therapy; Z79.899 Other long term (current) drug therapy
CPT/HCPCS: 36415; 86900; 86901; 80048; 85025; 86850; 86920; 99283; 36430; P9016

== ENCOUNTER 2023-09-25 11:42 | Emergency (ER) | payer MEDICARE, OTHER ==
[2023-09-25 11:56] VITALS: RESP 18
--- NOTE | 2023-09-25 12:15 | ED ---
Fever HPI - General Source: patient, family, RN notes reviewed Mode of arrival: wheelchair Limitations: no limitations <Keon Whitaker - Last Filed: 09/25/23 12:11> <Remberto Rosa - Last Filed: 09/25/23 19:30> - General Chief Complaint: Fever Stated Complaint: fever Time Seen by Provider: 09/25/23 12:11 - History of Present Illness Initial Comments: 78-year-old female presents emergency Department chief complaint of fever. Patient was at [facility] for her platelet transfusion when he noted to have fever she did receive some acetaminophen. Patient is on current antibiotics for her breast for infection. Patient offers no other complaints. This is a chronic issue with anemia, from Center. (Keon Whitaker) This is an 78-year-old female presents to the emergency department because she went to get her transfusion of platelets and she spiked a fever of 100.8 so they wanted her to be evaluated. Patient states she's had an upper respiratory infection was started prophylactically on Zithromax. Patient denies any abdominal pain patient denies nausea vomiting diarrhea. Patient denies dysuria hematuria urinary frequency. (Remberto Rosa) - Related Data Home Medications Medication Instructions Recorded Confirmed Amiodarone [Cordarone] 200 mg PO DAILY 06/14/23 09/25/23 Levothyroxine Sodium [Synthroid] 125 mcg PO DAILY 06/14/23 09/25/23 Metoprolol Succinate (ER) [Toprol 25 mg PO DAILY 06/14/23 09/25/23 XL] Pantoprazole [Protonix] 40 mg PO DAILY 06/14/23 09/25/23 Ascorbic Acid [Vitamin C] 2,000 mg PO DAILY 08/22/23 09/25/23 Biotin 10 mg PO DAILY 08/22/23 09/25/23 Calcium Carb/Mag Ox/Zinc Sulf 1 tab PO DAILY 08/22/23 09/25/23 [[id number]-[id number]-Omzc 334-134-5 mg Tab] Cholecalciferol [Vitamin D3 (25 50 mcg PO DAILY 08/22/23 09/25/23 Mcg = 1000 Iu)] Multivitamins, Thera [Multivitamin 1 tab PO DAILY 08/22/23 09/25/23 (formulary)] Omeprazole 20 mg PO DAILY 08/22/23 09/25/23 Acyclovir [Zovirax] 400 mg PO DIRECTED 09/25/23 09/25/23 Azithromycin [Zithromax Z Pack] See Taper PO DIRECTED 09/25/23 09/25/23 Ciprofloxacin HCl [Cipro] 500 mg PO DIRECTED 09/25/23 09/25/23 Fluconazole [Diflucan] 100 mg PO DIRECTED 09/25/23 09/25/23 Ondansetron [Zofran] 4 - 8 mg PO Q4H PRN 09/25/23 09/25/23 Primidone [Mysoline] 25 mg PO TID 09/25/23 09/25/23 lisinopriL [Zestril] 20 mg PO BID 09/25/23 09/25/23 Allergies Allergy/AdvReac Type Severity Reaction Status Date / Time No Known Allergies Allergy Verified 09/25/23 18:10 Review of Systems ROS Other: All systems not noted in ROS Statement are negative. <Keon Whitaker - Last Filed: 09/25/23 12:11> ROS Other: All systems not noted in ROS Statement are negative. <Remberto Rosa - Last Filed: 09/25/23 19:30> ROS Statement: Those systems with pertinent positive or pertinent negative responses have been documented in the HPI. Past Medical History Past Medical History: Atrial Fibrillation, Cancer, Hypertension, Thyroid Disorde r Additional Past Medical History / Comment(s): thrombocytopenia History of Any Multi-Drug Resistant Organisms: None Reported Past Surgical History: Tubal Ligation Additional Past Surgical History / Comment(s): thyroidectomy Past Anesthesia/Blood Transfusion Reactions: No Reported Reaction Past Psychological History: No Psychological Hx Reported Smoking Status: Former smoker <Keon Whitaker - Last Filed: 09/25/23 12:11> General Exam <Keon Whitaker - Last Filed: 09/25/23 12:11> <Remberto Rosa - Last Filed: 09/25/23 19:30> - General Exam Comments Initial Comments: Visual Physical Exam Vital signs reviewed General: Well-appearing, nontoxic, no acute distress. Head: Normocephalic, atraumatic Eyes: PERRLA, EOMI ENT: Airway patent Chest: Nonlabored breathing Skin: No visual rash, normal skin tone Neuro: Alert and oriented 3 Musculoskeletal: No gross abnormalities (Keon Whitaker) GENERAL: Patient is well-developed and well-nourished. Patient is nontoxic and well- hydrated and is in mild distress. ENT: Neck is soft and supple. No significant lymphadenopathy is noted. Oropharynx is clear. Moist mucous membranes. Neck has full range of motion without eliciting any pain. EYES: The sclera were anicteric and conjunctiva were pink and moist. Extraocular movements were intact and pupils were equal round and reactive to light. Eyelids were unremarkable. PULMONARY: Unlabored respirations. Good breath sounds bilaterally. No audible rales rhonchi or wheezing was noted. CARDIOVASCULAR: There is a regular rate and rhythm without any murmurs gallops or rubs. ABDOMEN: Soft and nontender with normal bowel sounds. SKIN: Skin is clear with no lesions or rashes and otherwise unremarkable. NEUROLOGIC: Patient is alert and oriented x3. Cranial nerves II through XII are grossly intact. Motor and sensory are also intact. Normal speech, volume and content. Symmetrical smile. MUSCULOSKELETAL: Normal extremities with adequate strength and full range of motion. No lower extremity swelling or edema. No calf tenderness. LYMPHATICS: No significant lymphadenopathy is noted PSYCHIATRIC: Normal psychiatric evaluation. (Remberto Rosa) Course Vital Signs 09/25/23 09/25/23 09/25/23 11:43 16:38 18:42 Temperature 98.3 F 101.0 F H 98.8 F Pulse Rate 75 80 78 Respiratory 18 18 18 Rate Blood Pressure 115/47 149/65 137/65 O2 Sat by Pulse 96 95 95 Oximetry Medical Decision Making <Keon Whitaker - Last Filed: 09/25/23 12:11> - Lab Data Result diagrams: 09/25/23 11:57 09/25/23 11:57 <Remberto Rosa - Last Filed: 09/25/23 19:30> - Medical Decision Making I completed the quick note portion of this chart signed Keon Whitaker PA-C (Keon Whitaker) Was pt. sent in by a medical professional or institution ([facility] Causey, CHART COMPUTER, urgent care, hospital, or senior living...) When possible be specific @ -Patient was sent in by the infusion center. Did you speak to anyone other than the patient for history (EMS, parent, family, police, friend...)? What history was obtained from this source @ -Daughter gave part of the history Did you review nursing and triage notes (agree or disagree)? Why? @ -I reviewed and agree with nursing and triage notes Were old charts reviewed (outside hosp., previous admission, EMS record, old EKG, old radiological studies, urgent care reports/EKG's, senior living records)? Report findings @ -No old charts were reviewed Differential Diagnosis (chest pain, altered mental status, abdominal pain women, abdominal pain men, vaginal bleeding, weakness, fever, dyspnea, syncope, headache, dizziness, GI bleed, back pain, seizure, CVA, palpatations, mental health, musculoskeletal)? @ -Differential Fever: Pneumonia, viral URI, endocarditis, myocarditis, pericarditis, otitis, sinusitis, peritonsillar Abscess, retropharyngeal Abscess, epiglottitis, peritonitis, appendicitis, Grace cystitis, diverticulitis, hepatitis, colitis, UTI, PID, TOA, pyelonephritis, prostatitis, epididymitis, meningitis, en cephalitis, pulmonary embolism, CVA, thyroid storm, pancreatitis, adrenal crisis, cavernous sinus thrombosis, this is not meant to be an all-inclusive list. EKG interpreted by me (3pts min.). @ -As above X-rays interpreted by me (1pt min.). @ -None done CT interpreted by me (1pt min.). @ -None done U/S interpreted by me (1pt. min.). @ -None done What testing was considered but not performed or refused? (CT, X-rays, U/S, labs)? Why? @ -None What meds were considered but not given or refused? Why? @ -None Did you discuss the management of the patient with other professionals (professionals i.e. , PA, CHART COMPUTER, lab, RT, psych nurse, psychosocial rehabilitation counselor, warehouse specialist, teacher, consumer loan officer, geriatric case manager)? Give summary @ -With oncology on a couple occasions and they did want to give the platelets even though the patient had a fever. Was smoking cessation discussed for >3mins.? @ -No Was critical care preformed (if so, how long)? @ -No Were there social determinants of health that impacted care today? How? (Homelessness, low income, unemployed, alcoholism, drug addiction, transportation, low edu. Level, literacy, decrease access to med. care, senior care, rehab)? @ -No Was there de-escalation of care discussed even if they declined (Discuss DNR or withdrawal of care, Hospice)? DNR status @ -No What co-morbidities impacted this encounter? (DM, HTN, Smoking, COPD, CAD, Cancer, CVA, ARF, Chemo, Hep., AIDS, mental health diagnosis, sleep apnea, morbi d obesity)? @ -None Was patient admitted / discharged? Hospital course, mention meds given and route, prescriptions, significant lab abnormalities, going to OR and other pertinent info. @ -Patient was in [facility] but has had symptoms since Sunday morning so it is been 3 days so no Tamiflu was given. Patient did receive the plate lets in the emergency department with out any issues. Patient will be discharged home to follow up. Patient was told to take Tylenol and keep hydrated. Undiagnosed new problem with uncertain prognosis? @ -No Drug Therapy requiring intensive monitoring for toxicity (Heparin, Nitro, Insulin, Cardizem)? @ -No Were any procedures done? @ -No Diagnosis/symptom? @ -Influenza A Acute, or Chronic, or Acute on Chronic? @ -Acute Uncomplicated (without systemic symptoms) or Complicated (systemic symptoms)? @ -Complicated Side effects of treatment? @ -No Exacerbation, Progression, or Severe Exacerbation? @ -No Poses a threat to life or bodily function? How? (Chest pain, [place], [place], pneumonia, PE, COPD, DKA, ARF, appy, cholecystitis, CVA, Diverticulitis, Homicidal, Suicidal, threat to staff... and all critical care pts) @ -No Diagnosis/symptom? @ -Thrombocytopenia Acute, or Chronic, or Acute on Chronic? @ -Acute on chronic Uncomplicated (without systemic symptoms) or Complicated (systemic symptoms)? @ -Complicated Side effects of treatment? @ -none Exacerbation, Progression, or Severe Exacerbation] @ -no Poses a threat to life or bodily function? @ -no (Remberto Rosa) - Lab Data Lab Results 09/25/23 09/25/23 09/25/23 Range/Units 11:50 11:57 11:57 WBC 2.6 L (3.8-10.6) k/uL RBC 2.81 L (3.80-5.40) m/uL Hgb 9.3 L D (11.4-16.0) gm/dL Hct 26.7 L (34.0-46.0) % MCV 95.1 (80.0-100.0) fL MCH 33.2 (25.0-35.0) pg MCHC 34.8 (31.0-37.0) g/dL RDW 20.2 H (11.5-15.5) % Plt Count 12 L* (150-450) k/uL MPV 11.7 Neutrophils % 69 % Lymphocytes % 16 % Monocytes % 10 % Eosinophils % 0 % Basophils % 0 % Neutrophils # 1.8 (1.3-7.7) k/uL Lymphocytes # 0.4 L (1.0-4.8) k/uL Monocytes # 0.3 (0-1.0) k/uL Eosinophils # 0.0 (0-0.7) k/uL Basophils # 0.0 (0-0.2) k/uL Manual Slide Review Performed Hypochromasia Slight Poikilocytosis Slight Anisocytosis Moderate Macrocytosis Slight Sodium 136 L (137-145) mmol/L Potassium 4.3 (3.5-5.1) mmol/L Chloride 102 (98-107) mmol/L Carbon Dioxide 25 (22-30) mmol/L Anion Gap 9 mmol/L BUN 20 H (7-17) mg/dL Creatinine 1.22 H (0.52-1.04) mg/dL Est GFR (CKD-EPI)AfAm 48 (>60 ml/min/1.73 sqM) Est GFR (CKD-EPI)NonAf 42 (>60 ml/min/1.73 sqM) Glucose 108 H (74-99) mg/dL Calcium 8.5 (8.4-10.2) mg/dL Total Bilirubin 0.7 (0.2-1.3) mg/dL AST 29 (14-36) U/L ALT 25 (4-34) U/L Alkaline Phosphatase 62 (38-126) U/L Total Protein 6.9 (6.3-8.2) g/dL Albumin 4.1 (3.5-5.0) g/dL Influenza Type A (PCR) Detected A (Not Detectd) Influenza Type B (PCR) Not Detected (Not Detectd) RSV (PCR) Not Detected (Not Detectd) SARS-CoV-2 (PCR) Not Detected (Not Detectd) Transfuse Platelets 09/25/23 Range/Units 16:28 WBC (3.8-10.6) k/uL RBC (3.80-5.40) m/uL Hgb (11.4-16.0) gm/dL Hct (34.0-46.0) % MCV (80.0-100.0) fL MCH (25.0-35.0) pg MCHC (31.0-37.0) g/dL RDW (11.5-15.5) % Plt Count (150-450) k/uL MPV Neutrophils % % Lymphocytes % % Monocytes % % Eosinophils % % Basophils % % Neutrophils # (1.3-7.7) k/uL Lymphocytes # (1.0-4.8) k/uL Monocytes # (0-1.0) k/uL Eosinophils # (0-0.7) k/uL Basophils # (0-0.2) k/uL Manual Slide Review Hypochromasia Poikilocytosis Anisocytosis Macrocytosis Sodium (137-145) mmol/L Potassium (3.5-5.1) mmol/L Chloride (98-107) mmol/L Carbon Dioxide (22-30) mmol/L Anion Gap mmol/L BUN (7-17) mg/dL Creatinine (0.52-1.04) mg/dL Est GFR (CKD-EPI)AfAm (>60 ml/min/1.73 sqM) Est GFR (CKD-EPI)NonAf (>60 ml/min/1.73 sqM) Glucose (74-99) mg/dL Calcium (8.4-10.2) mg/dL Total Bilirubin (0.2-1.3) mg/dL AST (14-36) U/L ALT (4-34) U/L Alkaline Phosphatase (38-126) U/L Total Protein (6.3-8.2) g/dL Albumin (3.5-5.0) g/dL Influenza Type A (PCR) (Not Detectd) Influenza Type B (PCR) (Not Detectd) RSV (PCR) (Not Detectd) SARS-CoV-2 (PCR) (Not Detectd) Transfuse Platelets 09/25/23 Disposition <Keon Whitaker - Last Filed: 09/25/23 12:11> Is patient prescribed a controlled substance at d/c from ED?: No Time of Disposition: 19:29 <Remberto Rosa - Last Filed: 09/25/23 19:30> Clinical Impression: Influenza, Thrombocytopenia Disposition: HOME SELF-CARE Instructions (If sedation given, give patient instructions): Influenza (ED) Additional Instructions: Patient should take Tylenol and increase by mouth fluids Referrals: Isaura Varela MD [Primary Care Provider] - 1-2 days
[2023-09-25 12:20] LABS: ALT 25 U/L (4-34); AST 29 U/L (14-36); African American GFR (CKD) 48 (>60 ml/min/1.73 sqM); Albumin 4.1 g/dL (3.5-5.0); Alkaline Phosphatase 62 U/L (38-126); Anion Gap 9 mmol/L; Blood Urea Nitrogen 20 mg/dL (7-17); Calcium 8.5 mg/dL (8.4-10.2); Carbon Dioxide 25 mmol/L (22-30); Chloride 102 mmol/L (98-107); Glucose 108 mg/dL (74-99); Non-African American GFR(CKD) 42 (>60 ml/min/1.73 sqM); Potassium 4.3 mmol/L (3.5-5.1); Sodium 136 mmol/L (137-145); Total Bilirubin 0.7 mg/dL (0.2-1.3); Total Protein 6.9 g/dL (6.3-8.2)
[2023-09-25 12:22] LABS: Anisocytosis Moderate; Basophils % (A) 0 %; Eosinophils % (A) 0 %; HCT 26.7 % (34.0-46.0); HGB 9.3 gm/dL (11.4-16.0); Hypochromasia Slight; Lymphocytes # (A) 0.4 k/uL (1.0-4.8); Lymphocytes % (A) 16 %; MCH 33.2 pg (25.0-35.0); MCHC 34.8 g/dL (31.0-37.0); MCV 95.1 fL (80.0-100.0); Macrocytosis Slight; Mean Platelet Volume 11.7; Monocytes # (A) 0.3 k/uL (0-1.0); Monocytes % (A) 10 %; Neutrophils # (A) 1.8 k/uL (1.3-7.7); Neutrophils % (A) 69 %; Poikilocytosis Slight; RBC 2.81 m/uL (3.80-5.40); RDW 20.2 % (11.5-15.5); WBC 2.6 k/uL (3.8-10.6)
[2023-09-25 12:26] LABS: Platelet Count 12 k/uL (150-450)
[2023-09-25] MEDS ORDERED: ACETAMINOPHEN IV (For NPO) 1,000 MG in EMPTY BAG 1 BAG IVPB STA (16:56)
[2023-09-25 19:35] VITALS: BP 140/70; PULSE 80; TEMP 99.2
== END 2023-09-25 19:53 | disposition home or self-care (01) ==
LOC: EC 11:42
DX: D69.6 Thrombocytopenia, unspecified (principal); J11.1 Influenza due to unidentified influenza virus with other respiratory manifestations; B95.0 Streptococcus, group A, as the cause of diseases classified elsewhere; I48.91 Unspecified atrial fibrillation; I10 Essential (primary) hypertension; E07.9 Disorder of thyroid, unspecified; Z87.891 Personal history of nicotine dependence; Z79.890 Hormone replacement therapy; Z79.899 Other long term (current) drug therapy; Z20.822 Contact with and (suspected) exposure to COVID-19
CPT/HCPCS: 36415; 80053; 85025; 87636; 99284; 96365; 36430; P9073; J0131

== ENCOUNTER 2023-09-28 12:55 | Emergency (ER) | payer MEDICARE, OTHER ==
[2023-09-28] MEDS ORDERED: SODIUM CHLORIDE 0.9% 1,000 ML IV STA (13:22)
--- NOTE | 2023-09-28 13:30 | ED ---
Recheck HPI - General Chief Complaint: Recheck/Abnormal Lab/Rx Stated Complaint: Low Hemoglobin Time Seen by Provider: 09/28/23 13:21 Source: patient, RN notes reviewed, old records reviewed Mode of arrival: ambulatory Limitations: no limitations - History of Present Illness Initial Comments: This is a 78-year-old female to the emergency department for evaluation severely low hemoglobin. Patient presents us for evaluation of low hemoglobin sent in by outside here with abnormal outpatient lab values. Patient is underlying history of MDS and has no acute bleeding MD Complaint: abnormal lab ((Hemoglobin) -: unknown Returns Today for: Called Because of Abnormal Lab/Test Symptoms Since Prior Visit: no new symptoms Context: called for abnormal lab result Associated Symptoms: none Treatments Prior to Arrival: other - Related Data Home Medications Medication Instructions Recorded Confirmed Amiodarone [Cordarone] 200 mg PO DAILY 06/14/23 10/04/23 Levothyroxine Sodium [Synthroid] 125 mcg PO DAILY 06/14/23 10/04/23 Metoprolol Succinate (ER) [Toprol 25 mg PO W/LUNCH 06/14/23 10/04/23 XL] Pantoprazole [Protonix] 40 mg PO DAILY 06/14/23 10/04/23 Ascorbic Acid [Vitamin C] 2,000 mg PO DAILY 08/22/23 10/04/23 Biotin 10 mg PO DAILY 08/22/23 10/04/23 Calcium Carb/Mag Ox/Zinc Sulf 1 tab PO DAILY 08/22/23 10/04/23 [[id number] 334-134-5 mg Tab] Cholecalciferol [Vitamin D3 (25 50 mcg PO DAILY 08/22/23 10/04/23 Mcg = 1000 Iu)] Multivitamins, Thera [Multivitamin 1 tab PO DAILY 08/22/23 10/04/23 (formulary)] Omeprazole 20 mg PO DAILY 08/22/23 10/04/23 Acyclovir [Zovirax] 400 mg PO DIRECTED 09/25/23 10/04/23 Ciprofloxacin HCl [Cipro] 500 mg PO DIRECTED 09/25/23 10/04/23 Fluconazole [Diflucan] 100 mg PO DIRECTED 09/25/23 10/04/23 Ondansetron [Zofran] 4 - 8 mg PO Q4H PRN 09/25/23 10/04/23 Primidone [Mysoline] 25 mg PO TID 09/25/23 10/04/23 lisinopriL [Zestril] 20 mg PO BID 09/25/23 10/04/23 Allergies Allergy/AdvReac Type Severity Reaction Status Date / Time No Known Allergies Allergy Verified 10/04/23 09:28 Review of Systems ROS Statement: Those systems with pertinent positive or pertinent negative responses have been documented in the HPI. ROS Other: All systems not noted in ROS Statement are negative. Past Medical History Past Medical History: Atrial Fibrillation, Cancer, Hypertension, Thyroid Disorder Additional Past Medical History / Comment(s): thrombocytopenia, MDS History of Any Multi-Drug Resistant Organisms: None Reported Past Surgical History: Tubal Ligation Additional Past Surgical History / Comment(s): thyroidectomy Past Anesthesia/Blood Transfusion Reactions: No Reported Reaction Past Psychological History: No Psychological Hx Reported Smoking Status: Former smoker Past Alcohol Use History: None Reported Past Drug Use History: None Reported General Exam Limitations: no limitations General appearance: alert, in no apparent distress, anxious, lethargic Head exam: Present: atraumatic, normocephalic, normal inspection Eye exam: Present: normal appearance, PERRL, EOMI. Absent: scleral icterus, conjunctival injection, periorbital swelling ENT exam: Present: normal exam, mucous membranes moist Neck exam: Present: normal inspection. Absent: tenderness, meningismus, lymphadenopathy Respiratory exam: Present: normal lung sounds bilaterally. Absent: respiratory distress, wheezes, rales, rhonchi, stridor Cardiovascular Exam: Present: regular rate, normal rhythm, normal heart sounds. Absent: systolic murmur, diastolic murmur, rubs, gallop, clicks GI/Abdominal exam: Present: soft, normal bowel sounds. Absent: distended, tenderness, guarding, rebound, rigid Extremities exam: Present: normal inspection, full ROM, normal capillary refill. Absent: tenderness, pedal edema, joint swelling, calf tenderness Back exam: Present: normal inspection Neurological exam: Present: alert, oriented X3, CN II-XII intact Psychiatric exam: Present: normal affect, normal mood Skin exam: Present: warm, dry, intact, normal color. Absent: rash Course Vital Signs 09/28/23 09/28/23 09/28/23 13:16 14:20 16:28 Temperature 97.6 F Pulse Rate 72 68 67 Respiratory 18 18 20 Rate Blood Pressure 142/66 135/67 143/59 O2 Sat by Pulse 97 98 95 Oximetry 09/28/23 09/28/23 09/28/23 17:55 18:06 18:26 Temperature 98.5 F 98.4 F 98.6 F Pulse Rate 67 67 66 Respiratory 18 18 18 Rate Blood Pressure 137/64 132/58 151/67 O2 Sat by Pulse 95 96 95 Oximetry 09/28/23 09/28/23 09/28/23 19:00 20:00 21:01 Temperature 98.6 F Pulse Rate 65 68 76 Respiratory 18 18 18 Rate Blood Pressure 147/58 150/69 135/52 O2 Sat by Pulse 95 95 95 Oximetry 09/28/23 21:03 Temperature 98.6 F Pulse Rate 76 Respiratory 18 Rate Blood Pressure 135/52 O2 Sat by Pulse 95 Oximetry - Reevaluation(s) Reevaluation #1: Medical records reviewed Reevaluation #2: Patient symptoms are improved here in the ER no difficulty with transfusion or transfusion reaction Reevaluation #3: Informed results questions answered Reevaluation #4: Was pt. sent in by a medical professional or institution (, PA, MOLDING UTILITY WORKER, urgent care, hospital, or intermediate...) When possible be specific @ -no Did you speak to anyone other than the patient for history (EMS, parent, family, police, friend...)? What history was obtained from this source @ -no Did you review nursing and triage notes (agree or disagree)? Why? @ -agree Are old charts reviewed (outside hosp., previous admission, EMS record, old EKG, old radiological studies, urgent care reports/EKG's, intermediate records)? Report findings @ -yes Differential Diagnosis (chest pain, altered mental status, abdominal pain women, abdominal pain men, vaginal bleeding, weakness, fever, dyspnea, syncope, headache, dizziness, GI bleed, back pain, seizure, CVA, palpatations, mental health, musculoskeletal)? @ -prior EKG interpreted by me (3pts min.). @ -yes X-rays interpreted by me (1pt min.). @ -no CT interpreted by me (1pt min.). @ -no U/S interpreted by me (1pt. min.). @ -no What testing was considered but not performed or refused? (CT, X-rays, U/S, labs)? Why? @ -none What meds were considered but not given or refused? Why? @ -none Did you discuss the management of the patient with other professionals (professionals i.e. , PA, MOLDING UTILITY WORKER, lab, RT, psych nurse, social research assistant, transformation manager, teacher, rating officer, high risk case manager)? Give summary @ -no Was smoking cessation discussed for >3mins.? @ -no Was critical care preformed (if so, how long)? @ -no Were there social determinants of health that impacted care today? How? (Homelessness, low income, unemployed, alcoholism, drug addiction, transportation, low edu. Level, literacy, decrease access to med. care, snf, rehab)? @ -none Was there de-escalation of care discussed even if they declined (Discuss DNR or withdrawal of care, Hospice)? DNR status @ -no What co-morbidities impacted this encounter? (DM, HTN, Smoking, COPD, CAD, Cancer, CVA, ARF, Chemo, Hep., AIDS, mental health diagnosis, sleep apnea, morbid obesity)? @ -none Was patient admitted / discharged? Hospital course, mention meds given and route, prescriptions, significant lab abnormalities, going to OR and other pertinent info. @ - 78 female to the emergency department with underlying MDS with significant pancytopenia. Patient was given transfusion here in the ER for discharge home, patient herself prefers discharged home at this time Discharge Undiagnosed new problem with uncertain prognosis? @ -no Drug Therapy requiring intensive monitoring for toxicity (Heparin, Nitro, Insulin, Cardizem)? @ -no Were any procedures done? @ -no Diagnosis/symptom? @ -Myelodysplastic syndrome with pancytopenia Acute, or Chronic, or Acute on Chronic? @ -Acute Uncomplicated (without systemic symptoms) or Complicated (systemic symptoms)? @ -Complicated Side effects of treatment? @ -no Exacerbation, Progression, or Severe Exacerbation? @ -exacerbation Poses a threat to life or bodily function? How? (Chest pain, USA, PR, pneumonia, PE, COPD, DKA, ARF, appy, cholecystitis, CVA, Diverticulitis, Homicidal, Suicidal, threat to staff... and all critical care pts) @ -yes significant underlying comorbidities Reevaluation #5: Differential Weakness: Hypoglycemia, shock, sepsis, hyponatremia, anemia, infection, PR, ETOH, adverse medicine reaction, overdose, stroke, this is not meant to be an all-inclusive list. Medical Decision Making - Medical Decision Making 78 female to the emergency department with underlying MDS with significant pancytopenia. Patient was given transfusion here in the ER for discharge home, patient herself prefers discharged home at this - Lab Data Result diagrams: 09/28/23 14:00 09/28/23 14:00 Lab Results 09/28/23 09/28/23 09/28/23 Range/Units 14:00 14:00 14:00 WBC 1.8 L (3.8-10.6) k/uL RBC 2.13 L (3.80-5.40) m/uL Hgb 7.1 L D (11.4-16.0) gm/dL Hct 20.2 L (34.0-46.0) % MCV 95.0 (80.0-100.0) fL MCH 33.5 (25.0-35.0) pg MCHC 35.3 (31.0-37.0) g/dL RDW 20.2 H (11.5-15.5) % Plt Count 16 L* (150-450) k/uL MPV 10.0 Neutrophils % 57 % Lymphocytes % 33 % Monocytes % 6 % Eosinophils % 1 % Basophils % 0 % Neutrophils # 1.0 L (1.3-7.7) k/uL Lymphocytes # 0.6 L (1.0-4.8) k/uL Monocytes # 0.1 (0-1.0) k/uL Eosinophils # 0.0 (0-0.7) k/uL Basophils # 0.0 (0-0.2) k/uL Hypochromasia Slight Poikilocytosis Moderate Anisocytosis Moderate Macrocytosis Slight PT 11.7 (10.0-12.5) sec INR 1.1 (<1.2) APTT 23.8 (22.0-30.0) sec Sodium 136 L (137-145) mmol/L Potassium 4.0 (3.5-5.1) mmol/L Chloride 103 (98-107) mmol/L Carbon Dioxide 24 (22-30) mmol/L Anion Gap 9 mmol/L BUN 22 H (7-17) mg/dL Creatinine 1.03 (0.52-1.04) mg/dL Est GFR (CKD-EPI)AfAm 59 (>60 ml/min/1.73 sqM) Est GFR (CKD-EPI)NonAf 52 (>60 ml/min/1.73 sqM) Glucose 128 H (74-99) mg/dL Plasma Lactic Acid Karsten (0.7-2.0) mmol/L Calcium 8.4 (8.4-10.2) mg/dL Phosphorus 3.7 (2.5-4.5) mg/dL Magnesium 1.9 (1.6-2.3) mg/dL Total Bilirubin 0.7 (0.2-1.3) mg/dL AST 30 (14-36) U/L ALT 22 (4-34) U/L Alkaline Phosphatase 60 (38-126) U/L Troponin I (0.000-0.034) ng/mL NT-Pro-B Natriuret Pep 181 pg/mL Total Protein 6.7 (6.3-8.2) g/dL Albumin 3.9 (3.5-5.0) g/dL Blood Type Blood Type Recheck Bld Type Recheck Status Antibody Screen Crossmatch Spec Expiration Date 09/28/23 09/28/23 09/28/23 Range/Units 14:00 14:00 14:00 WBC (3.8-10.6) k/uL RBC (3.80-5.40) m/uL Hgb (11.4-16.0) gm/dL Hct (34.0-46.0) % MCV (80.0-100.0) fL MCH (25.0-35.0) pg MCHC (31.0-37.0) g/dL RDW (11.5-15.5) % Plt Count (150-450) k/uL MPV Neutrophils % % Lymphocytes % % Monocytes % % Eosinophils % % Basophils % % Neutrophils # (1.3-7.7) k/uL Lymphocytes # (1.0-4.8) k/uL Monocytes # (0-1.0) k/uL Eosinophils # (0-0.7) k/uL Basophils # (0-0.2) k/uL Hypochromasia Poikilocytosis Anisocytosis Macrocytosis PT (10.0-12.5) sec INR (<1.2) APTT (22.0-30.0) sec Sodium (137-145) mmol/L Potassium (3.5-5.1) mmol/L Chloride (98-107) mmol/L Carbon Dioxide (22-30) mmol/L Anion Gap mmol/L BUN (7-17) mg/dL Creatinine (0.52-1.04) mg/dL Est GFR (CKD-EPI)AfAm (>60 ml/min/1.73 sqM) Est GFR (CKD-EPI)NonAf (>60 ml/min/1.73 sqM) Glucose (74-99) mg/dL Plasma Lactic Acid Karsten 1.2 (0.7-2.0) mmol/L Calcium (8.4-10.2) mg/dL Phosphorus (2.5-4.5) mg/dL Magnesium (1.6-2.3) mg/dL Total Bilirubin (0.2-1.3) mg/dL AST (14-36) U/L ALT (4-34) U/L Alkaline Phosphatase (38-126) U/L Troponin I <0.012 (0.000-0.034) ng/mL NT-Pro-B Natriuret Pep pg/mL Total Protein (6.3-8.2) g/dL Albumin (3.5-5.0) g/dL Blood Type O Positive Blood Type Recheck O Pos Bld Type Recheck Status No Antibody Screen NEGATIVE Crossmatch See Detail Spec Expiration Date 10/01/20232299 - EKG Data -: EKG Interpreted by Me (EKG is sinus 71. DC 180 QRS 89 QTc 367) Disposition Clinical Impression: Anemia, Myelodysplasia (myelodysplastic syndrome), Thrombocytopenia Disposition: HOME SELF-CARE Condition: Good Instructions (If sedation given, give patient instructions): Anemia (ED) Is patient prescribed a controlled substance at d/c from ED?: No Referrals: Isaura Varela MD [Primary Care Provider] - 1-2 days
[2023-09-28 14:11] LABS: Anisocytosis Moderate; Basophils % (A) 0 %; Eosinophils % (A) 1 %; HCT 20.2 % (34.0-46.0); HGB 7.1 gm/dL (11.4-16.0); Hypochromasia Slight; Lymphocytes # (A) 0.6 k/uL (1.0-4.8); Lymphocytes % (A) 33 %; MCH 33.5 pg (25.0-35.0); MCHC 35.3 g/dL (31.0-37.0); Macrocytosis Slight; Monocytes # (A) 0.1 k/uL (0-1.0); Monocytes % (A) 6 %; Neutrophils % (A) 57 %; Poikilocytosis Moderate; RBC 2.13 m/uL (3.80-5.40); RDW 20.2 % (11.5-15.5); WBC 1.8 k/uL (3.8-10.6)
[2023-09-28 14:21] LABS: INR 1.1 (<1.2); Partial Thromboplastin Time 23.8 sec (22.0-30.0); Prothrombin Time 11.7 sec (10.0-12.5)
[2023-09-28 14:27] LABS: ALT 22 U/L (4-34); AST 30 U/L (14-36); African American GFR (CKD) 59 (>60 ml/min/1.73 sqM); Albumin 3.9 g/dL (3.5-5.0); Alkaline Phosphatase 60 U/L (38-126); Anion Gap 9 mmol/L; Blood Urea Nitrogen 22 mg/dL (7-17); Calcium 8.4 mg/dL (8.4-10.2); Carbon Dioxide 24 mmol/L (22-30); Chloride 103 mmol/L (98-107); Glucose 128 mg/dL (74-99); Magnesium 1.9 mg/dL (1.6-2.3); Non-African American GFR(CKD) 52 (>60 ml/min/1.73 sqM); Phosphorus 3.7 mg/dL (2.5-4.5); Platelet Count 16 k/uL (150-450); Sodium 136 mmol/L (137-145); Total Bilirubin 0.7 mg/dL (0.2-1.3); Total Protein 6.7 g/dL (6.3-8.2)
[2023-09-28 14:34] LABS: NT-Pro-B-Type Natriuretic Pept 181 pg/mL
[2023-09-28 17:58] VITALS: RESP 18
[2023-09-28 19:04] VITALS: TEMP 98.6
[2023-09-28 21:24] VITALS: BP 135/52; PULSE 76
== END 2023-09-28 21:20 | disposition home or self-care (01) ==
LOC: EC 12:55
DX: D46.9 Myelodysplastic syndrome, unspecified (principal); D69.6 Thrombocytopenia, unspecified; I10 Essential (primary) hypertension; I48.91 Unspecified atrial fibrillation; E07.9 Disorder of thyroid, unspecified; Z79.890 Hormone replacement therapy; Z79.899 Other long term (current) drug therapy; Z87.891 Personal history of nicotine dependence
CPT/HCPCS: 36415; 93005; 86900; 86901; 83880; 80053; 83605; 83735; 84100; 84484; 85025; 85610; 85730; 86850; 86920; 99285; 36430; 96360; 96361 ×6; P9040